=== PATIENT | female | born 1945 | race Caucasian/White ===

== ENCOUNTER → 2016-07-19 | Outpatient (CLI) | payer OTHER ==
[~2016-07-19] MED LIST: ATV5 PO; BACL10TA PO; BIOT1CAP8 PO; CHOL1000 PO; CITA20TA4 PO; CLC100 PO; CLX20 PO; DLCS PR; FLUT110A INH; FLVHFA110 INH; HYDR-5688 PO; LINA1CAP2 PO; LORA-741 PO; MELA1TAB5 PO; MELO7.5T5 PO; MRLP17 PO; NRN300 PO; NRV5 PO; OXYC-57 PO; PRED10TA PO; RXC5 PO; SENN8.6T7 PO; SODIENE6 PR
[2016-07-19 16:37] LABS: BASO % 0.4 %; BASO ABS # 0.03 K/uL (0-0.2); COMPLETE YES; EOS % 2.3 %; IG% 0.1 %; LYMPH % 31.3 %; LYMPH ABS # 2.19 K/uL (1.2-3.4); MEAN CELL VOLUME 89.8 fL (80-100); MEAN CORPUSCULAR HEMOGLOBIN 31.8 pg (25-34); MEAN CORPUSCULAR HGB CONC 35.4 g/dl (32-36); MEAN PLATELET VOLUME 10.2 fL (7.4-10.4); MONO % 11.2 %; NEUT % 54.7 %; PLATELET COUNT 220 K/uL (130-400); RED BLOOD COUNT 4.12 M/uL (4.2-5.4); WHITE BLOOD COUNT 6.99 K/uL (4.8-10.8)
[2016-07-19 17:13] LABS: BLOOD UREA NITROGEN 21 mg/dl (7-18); BUN/CREATININE RATIO 22.8 (10-20); CALCIUM 8.7 mg/dl (8.5-10.1); CARBON DIOXIDE 26 mmol/L (21-32); CHLORIDE 109 mmol/L (98-107); CHOLESTEROL 215 mg/dl (0-200); CREATININE 0.93 mg/dl (0.60-1.20); GLUCOSE 94 mg/dl (70-99); POTASSIUM 3.9 mmol/L (3.5-5.1); SODIUM 143 mmol/L (136-145); TRIGLYCERIDES 174 mg/dl (0-150); VERY LOW DENSITY LIPOPROT CALC 35 mg/dl
[2016-07-19 17:24] LABS: CHOLESTEROL/HDL RATIO 2.9; HDL CHOLESTEROL 74 mg/dl; LDL CHOLESTEROL CALCULATED 106 mg/dl; THYROID STIMULATING HORMONE 0.934 uIu/ml (0.300-4.500)
== END | disposition home or self-care (01) ==
LOC: C.LAB 15:27
PROVIDERS: ATTEND Physician Assistant
DX: J30.9 Allergic rhinitis, unspecified (principal); R51 Headache; E78.5 Hyperlipidemia, unspecified; I10 Essential (primary) hypertension; K59.09 Other constipation

== ENCOUNTER → 2016-07-29 | Day surgery (SDC) | payer OTHER ==
[2016-07-17 12:55] VITALS: Ht 162.6 cm; Wt 62.7 kg
[~2016-07-29] VITALS: Ht 162.6 cm; Wt 62.7 kg
[~2016-07-29] MED LIST changes: +LIDOCAINE HCL 2% 2 ML VIAL (20MG/ML) ONE; +MIDAZOLAM HCL 1 MG/ML 2ML VIAL ONE; +ONDANSETRON INJ 2 MG/ML 2 ML VIAL ONE; +PROPOFOL IV EMULSION 10 MG/ML 20 ML VIAL IV ONE; +SODIUM CHLORIDE 0.9% 500ML 500 ML IV ONE
--- NOTE | 2016-07-29 08:34 | Endo History and Physical ---
History & Physical Date of Service: Jul 29, 2016. Chief Complaint: Constipation Referring Physician: Dr. Almas Esparza History of Present Illness 71 yo CF who presents for colonoscopy secondary to constipation. Past Medical History Asthma, Reflux Past Surgical History Hx Cardiac Surgery: No Hx Internal Defibrillator: No Hx Pacemaker: No Hx Abdominal Surgery: Yes (ROBERTO) Hx of Implantable Prosthesis: No Hx Post-Op Nausea and Vomiting: No Hx Cancer Surgery: No Hx Thoracic Surgery: No Hx Orthopedic: Yes (CERVICAL DISCECTOMY) Hx Urinary Tract Surgery: No Family History IBD Social History Smoking Status: Never Smoker Hx Substance Use: No Hx Alcohol Use: No Allergies Coded Allergies: Erythromycin (Verified Allergy, Unknown, NAUSEA, 07/29/16) Sulfamethoxazole (Verified Allergy, Unknown, RASH, 07/17/16) Uncoded Allergies: [id number] (Allergy, Unknown, NAUSEA, 01/18/15) [id number] (Allergy, Unknown, 01/18/15) Current Medications Reported Home Medications Medications Dose Route/Sig Max Daily Dose Days Date Category Linzess (Linaclotide) 290 Mcg Cap 290 Mcg PO DAILY 07/29/16 Reported Kp Melatonin (Melatonin) 3 Mg Tab 1 Tab PO HS 30 07/17/16 Reported Mobic (Meloxicam) 7.5 Mg Tab 7.5 Mg PO HS 07/17/16 Reported Vitamin D3 (Cholecalciferol) 1,000 Unit Tab 1 Tab PO QAM 90 07/17/16 Reported Biotin 1 Mg Cap 1 Cap PO QAM 07/17/16 Reported Flovent Hfa 110MCG Inhaler (Fluticasone Propionate Hfa) 110 Mcg/ Aer 1 Puff INH QAM 02/17/14 Reported Ativan * (Lorazepam) 0.5 Mg Tab 0.5 Mg PO Q6HR PRN 07/24/08 Reported Celexa * (Citalopram Hydrobromide) 20 Mg Tab 30 Mg PO QAM 07/24/08 Reported Vital Signs Weight (Kilograms): 62.73 Height (Feet): 5 Height (Inches): 4 Date Time Temp Pulse Resp B/P Pulse Ox O2 Delivery O2 Flow Rate FiO2 07/29/16 08:21 37 78 20 138/72 98 Room Air Physical Exam General Appearance: WD/WN, no apparent distress Respiratory/Chest: Auscultation: breath sounds normal Cardiovascular: Heart Auscultation: RRR Abdomen: Bowel Sounds: normal Inspection & Palpation: soft, non-distended, no tenderness, guarding & rebound Assessment and Plan Assessment: 71 yo CF who presents for colonoscopy secondary to constipation. Plan: Proceed with colonoscopy.
--- NOTE | 2016-07-29 09:01 | GI REPORT ---
Procedure Date: 07/29/2016 8:37 AM Procedure: Colonoscopy Indications: Constipation Medicines: Monitored Anesthesia Care Complications: No immediate complications. Estimated Blood Loss: Estimated blood loss: none. Procedure: Pre-Anesthesia Assessment: - Prior to the procedure, a History and Physical was performed, and patient medications and allergies were reviewed. The patient's tolerance of previous anesthesia was also reviewed. The risks and benefits of the procedure and the sedation options and risks were discussed with the patient. All questions were answered, and informed consent was obtained. Prior Anticoagulants: The patient has taken no previous anticoagulant or antiplatelet agents. ASA Grade Assessment: II - A patient with mild systemic disease. After reviewing the risks and benefits, the patient was deemed in satisfactory condition to undergo the procedure. After I obtained informed consent, the scope was passed under direct vision. Throughout the procedure, the patient's blood pressure, pulse, and oxygen saturations were monitored continuously. The scope was introduced through the anus and advanced to the terminal ileum. The colonoscopy was performed without difficulty. The patient tolerated the procedure well. The quality of the bowel preparation was good. The terminal ileum, ileocecal valve, appendiceal orifice, and rectum were photographed. Findings: Non-bleeding internal hemorrhoids were found during retroflexion. The hemorrhoids were small. The exam was otherwise without abnormality. Impression: - Non-bleeding internal hemorrhoids. - The examination was otherwise normal. - No specimens collected. Recommendation: - Resume previous diet. - Continue present medications. - Repeat colonoscopy in 10 years for surveillance. - Return to primary care physician as previously scheduled. Mina Naik DO 07/29/2016 9:01:17 AM This report has been signed electronically. Note Initiated On: 07/29/2016 8:37 AM I attest to the content of the Intraoperative Record and orders documented therein, exceptions below
--- NOTE | 2016-07-29 09:02 | Discharge Instructions ---
Endoscopy Patient Instructions Date / Procedure(s) Performed Jul 29, 2016. Colonoscopy Allergy Information Coded Allergies: Erythromycin (Verified Allergy, Unknown, NAUSEA, 07/29/16) Sulfamethoxazole (Verified Allergy, Unknown, RASH, 07/17/16) Uncoded Allergies: [id number] (Allergy, Unknown, NAUSEA, 01/18/15) [id number] (Allergy, Unknown, 01/18/15) Discharge Date / Findings Jul 29, 2016. Internal hemorrhoids Medication Instructions Stopped Medication(s): Last dose Mobic Friday OK to resume all medications today as prescribed. Reported Home Medications Medications Dose Route/Sig Max Daily Dose Days Date Category Linzess (Linaclotide) 290 Mcg Cap 290 Mcg PO DAILY 07/29/16 Reported Kp Melatonin (Melatonin) 3 Mg Tab 1 Tab PO HS 30 07/17/16 Reported Mobic (Meloxicam) 7.5 Mg Tab 7.5 Mg PO HS 07/17/16 Reported Vitamin D3 (Cholecalciferol) 1,000 Unit Tab 1 Tab PO QAM 90 07/17/16 Reported Biotin 1 Mg Cap 1 Cap PO QAM 07/17/16 Reported Flovent Hfa 110MCG Inhaler (Fluticasone Propionate Hfa) 110 Mcg/ Aer 1 Puff INH QAM 02/17/14 Reported Ativan * (Lorazepam) 0.5 Mg Tab 0.5 Mg PO Q6HR PRN 07/24/08 Reported Celexa * (Citalopram Hydrobromide) 20 Mg Tab 30 Mg PO QAM 07/24/08 Reported Provider Instructions Activity Restrictions - No exercising or heavy lifting for 24 hours. - Do not drink alcohol the day of the procedure. - Do not drive a car or operate machinery until the day after the procedure. - Do not make any important decisions or sign important papers in 24 hours after the procedure. Following Day: - Return to full activity which may include returning to work/school. Diet Start your diet with liquids and light foods (jello, soup, juice, toast). Then eat your usual diet if not nauseated. Treatment For Common After Affects For mild abdominal pain, bloating, or excessive gas: - Rest - Eat lightly - Lie on right side Follow-Up Information Follow-up with Dr. Almas Esparza as scheduled Anesthesia Information What You Should Know You have had a procedure that required some medicine to reduce anxiety and discomfort. This treatment is called moderate sedation. After receiving the treatment, you may be sleepy, but you will be able to breathe on your own. The effects of the treatment may last for several hours. Follow these instructions along with Activity/Diet recommendations noted above: * Do NOT do anything where dizziness or clumsiness would be dangerous. * Rest quietly at home today, then you can be up and about tomorrow. * Have a responsible person stay with you the rest of today. * You may have had an I.V. today. If so, you may take the dressing off later today. Recommendations Call your doctor if: * Trouble breathing * Continuous vomiting for more than 24 hours * Temperature above 101 degrees * Severe abdominal pain or bloating * Pain not relieved by pain medicine ordered * There is increased drainage or redness from any incision * A large amount of rectal bleeding greater than 2-3 tablespoons. (If you had a polyp/s removed or have hemorrhoids, a small amount of blood - from the rectum is to be expected.) * You have any unanswered questions or concerns. IN THE EVENT OF A SERIOUS EMERGENCY, GO TO THE NEAREST EMERGENCY ROOM Your discharge instructions were prepared by provider Mina Naik. Patient Instructions Signature Page Ella Yoder Patient (or Guardian) Signature/Date: I have read and understand the instructions given to me by my caregivers. Caregiver/RN/Doctor Signature/Date: The above-named patient and/or guardian has received patient instructions on this date. + Original Patient Signature Page (only) stays with chart. Please make copy for patient.
--- NOTE | 2016-07-29 09:29 | Anesthesiology Progress Note ---
Anesthesia Post Op Note Date & Time Jul 29, 2016 at 09:29 Vital Signs Pain Intensity: 0 Vital Signs Past 12 Hours Date Time Temp Pulse Resp B/P Pulse Ox O2 Delivery O2 Flow Rate FiO2 07/29/16 09:15 60 18 119/62 95 Room Air 07/29/16 09:00 55 16 90/54 95 Room Air 07/29/16 08:21 37 78 20 138/72 98 Room Air Notes Mental Status: alert / awake / arousable, participated in evaluation Pt Amnestic to Procedure: Yes Nausea / Vomiting: adequately controlled Pain: adequately controlled Airway Patency, RR, SpO2: stable & adequate BP & HR: stable & adequate Hydration State: stable & adequate Anesthetic Complications: no major complications apparent
[2016-07-29 09:30] VITALS: BP 128/72; PULSE 56; O2SAT 98
== END | disposition home or self-care (01) ==
LOC: C.GI 08:02
PROVIDERS: ATTEND Internal Medicine
DX: K59.00 Constipation, unspecified (principal); K64.8 Other hemorrhoids; Z83.79 Family history of other diseases of the digestive system

== ENCOUNTER 2017-01-01 15:04 | Emergency (ER) | payer OTHER ==
[~2017-01-01 15:04] MED LIST changes: -BACL10TA PO; -CITA20TA4 PO; -CLC100 PO; -DLCS PR; -FLVHFA110 INH; -HYDR-5688 PO; -LIDOCAINE HCL 2% 2 ML VIAL (20MG/ML) ONE; -LORA-741 PO; -MIDAZOLAM HCL 1 MG/ML 2ML VIAL ONE; -MRLP17 PO; -NRN300 PO; -NRV5 PO; -ONDANSETRON INJ 2 MG/ML 2 ML VIAL ONE; -OXYC-57 PO; -PRED10TA PO; -PROPOFOL IV EMULSION 10 MG/ML 20 ML VIAL IV ONE; -RXC5 PO; -SENN8.6T7 PO; -SODIENE6 PR; -SODIUM CHLORIDE 0.9% 500ML 500 ML IV ONE
[2017-01-01 15:18] VITALS: Ht 162.6 cm
[2017-01-01] MEDS ORDERED: SODIUM CHLORIDE 0.9% 1000ML 1,000 ML IV STA (15:36)
[2017-01-01] MEDS ORDERED: METHYLPREDNISOLONE 125 MG VIAL IV STA (15:36)
[2017-01-01] MEDS ORDERED: LORAZEPAM 2 MG/ML 1 ML VIAL IV STA (15:36)
[2017-01-01] MEDS ORDERED: MoRPHine SULFATE 2 MG/ML CARP IV STA (15:36)
[2017-01-01 16:08] LABS: HEMATOCRIT 35.7 % (37-47); MEAN CELL VOLUME 89.3 fL (80-100); MEAN CORPUSCULAR HGB CONC 34.7 g/dl (32-36); MEAN PLATELET VOLUME 9.2 fL (7.4-10.4); PLATELET COUNT 188 K/uL (130-400)
--- NOTE | 2017-01-01 16:11 | EMERGENCY ROOM VISIT NOTE ---
History Report prepared by Behzad: Su Pablo Under the Supervision of: Dr. Jessa Cedeno M.D. First contact with patient: 15:31 Chief Complaint: HIP PAIN Stated Complaint: SEVERE PAIN/NUMBNESS IN RT HIP, KNEE AND LEG History of Present Illness The patient is a 71 year old female who presents to the Emergency Room with complaints of right hip pain starting 6 and a half hours ago. The patient had woken up about 2 hours prior to the onset of her symptoms but she did not have any hip pain then. When the patient woke up again about 6 and a half hours ago, she started having severe right hip pain. She describes it as a shooting pain and numbness radiating down her right leg. She is unable to ambulate as normal due to the severity of the pain. She has worsening pain with certain positions and movement. She took Vicodin without relief. The patient has a history of cervical disc surgery. She denies any history of diabetes or osteoporosis. She has been doing increased bending and lifting for the past 3 weeks. She denies bowel incontinence, or any other complaints. Source of History: patient Onset: 6 and a half hours ago Position: other (right hip) Symptom Intensity: severe Quality: numbness, other (shooting pain) Modifying Factors (Worsening): other (certain positions and movement) Modifying Factors (Relieving): other (Vicodin without relief) Review of Systems See HPI for pertinent positives & negatives. A total of 10 systems reviewed and were otherwise negative. Past Medical & Surgical Medical Problems: (1) Anxiety (2) Depression (3) Fibromyalgia (4) GERD (gastroesophageal reflux disease) (5) Osteoarthritis Surgical Problems: (1) H/O laminectomy (2) S/P cholecystectomy Family History No pertinent family history Social History Smoking Status: Never Smoker Alcohol Use: none Drug Use: none Marital Status: Housing Status: lives with significant other Current/Historical Medications Scheduled Biotin (Biotin), 1 CAP PO QAM Cholecalciferol (Vitamin D3), 1 TAB PO QAM Citalopram Hydrobromide (Citalopram Hydrobromide), 1.5 TAB PO DAILY Fluticasone Propionate (Flovent Hfa), 1 PUFFS INH QAM Lorazepam (Ativan), 0.5 MG PO HS Melatonin (Kp Melatonin), 1 TAB PO HS Meloxicam (Mobic), 2 TAB PO HS Prednisone (Prednisone), 10 MG PO DIRECTED Scheduled PRN Hydrocodone/Acetaminophen 5MG/325MG ([place] 5MG/325MG), 1-2 TAB PO for Pain Lorazepam (Ativan), 0.5 MG PO TID PRN for Muscle Spasms Oxycodone/Acetaminophen 5MG/325MG (Percocet 5MG/325MG), 1 TAB PO Q4H PRN for Pain Allergies Coded Allergies: Erythromycin (Verified Allergy, Unknown, NAUSEA, 01/01/17) Sulfamethoxazole (Verified Allergy, Unknown, RASH, 01/01/17) Physical Exam Vital Signs Date Time Temp Pulse Resp B/P (MAP) Pulse Ox O2 Delivery O2 Flow Rate FiO2 01/01/17 19:18 36.7 56 20 112/70 97 01/01/17 16:55 56 01/01/17 15:18 36.7 64 20 112/70 97 Room Air Physical Exam Vital signs reviewed. General: Well-appearing female, in no significant distress. HEENT: No scleral icterus, PERRLA, neck supple. Atraumatic. Cardiovascular: Regular rate and rhythm, no extra sounds. Pulmonary: Clear to auscultation bilaterally, normal work of breathing. Abdomen: Soft, nontender, nondistended, positive bowel sounds. Musculoskeletal: Atraumatic, no peripheral edema. Positive right straight leg raise. Neurologic: Patient awake alert and oriented x 3, full strength in all 4 extremities. Cranial nerves 2 through 12 grossly intact. Skin: Warm, dry, no rash Medical Decision & Procedures ER Provider Diagnostic Interpretation: X-ray results as stated below per interpretation by me and the radiologist: L-SPINE MIN 4 VIEWS ROUTINE CLINICAL HISTORY: Right lumbar radiculopathy. COMPARISON: None FINDINGS: There are cholecystectomy clips. Alignment of the lumbar spine is anatomic. Vertebral body heights are maintained. There is no fracture or suspicious lesion. Disc spaces are preserved. There is mild multilevel endplate osteophytosis. There is moderate facet arthrosis. IMPRESSION: 1. No acute lumbar spine fracture. 2. Mild multilevel degenerative disc disease and moderate multilevel facet arthrosis. Electronically signed by: Rosalino Kelly M.D. 01/01/2017 4:43 PM Dictated Date/Time: 01/01/2017 4:42 PM Laboratory Results 01/01/17 15:55 01/01/17 15:55 Test 01/01/17 15:55 01/01/17 16:00 Red Blood Count 4.00 M/uL (4.2-5.4) Mean Corpuscular Volume 89.3 fL (80-100) Mean Corpuscular Hemoglobin 31.0 pg (25-34) Mean Corpuscular Hemoglobin Concent 34.7 g/dl (32-36) RDW Standard Deviation 40.1 fL (36.4-46.3) RDW Coefficient of Variation 12.3 % (11.5-14.5) Mean Platelet Volume 9.2 fL (7.4-10.4) Anion Gap 4.0 mmol/L (3-11) Estimated GFR () 81.0 Estimated GFR (Non- 69.9 BUN/Creatinine Ratio 22.4 (10-20) Calcium Level 8.9 mg/dl (8.5-10.1) Total Bilirubin 0.4 mg/dl (0.2-1) Direct Bilirubin 0.1 mg/dl (0-0.2) Aspartate Amino Transf (AST/SGOT) 19 U/L (15-37) Alanine Aminotransferase (ALT/SGPT) 30 U/L (12-78) Alkaline Phosphatase 75 U/L (45-117) Total Protein 6.6 gm/dl (6.4-8.2) Albumin 3.3 gm/dl (3.4-5.0) Urine Color YELLOW Urine Appearance CLEAR (CLEAR) Urine pH 5.0 (4.5-7.5) Urine Specific [place] 1.014 (1.000-1.030) Urine Protein NEG (NEG) Urine Glucose (UA) NEG (NEG) Urine Ketones NEG (NEG) Urine Occult Blood NEG (NEG) Urine Nitrite NEG (NEG) Urine Bilirubin NEG (NEG) Urine Urobilinogen NEG (NEG) Urine Leukocyte Esterase TRACE (NEG) Urine WBC (Auto) 1-5 /hpf (0-5) Urine RBC (Auto) 0-4 /hpf (0-4) Urine Hyaline Casts (Auto) 0 /lpf (0-5) Urine Epithelial Cells (Auto) 0-5 /lpf (0-5) Urine Bacteria (Auto) NEG (NEG) Laboratory results per my review. Medications Administered Medications (Trade) Dose Ordered Sig/Brianna Route Start Time Stop Time Status Last Admin Dose Admin Methylprednisolone Sodium Succinate (Solu-Medrol IV) 125 mg NOW STAT IV 01/01/17 15:36 01/01/17 15:39 DC 01/01/17 16:07 125 MG Lorazepam (Ativan Inj) 0.5 mg NOW STAT IV 01/01/17 15:36 01/01/17 15:39 DC 01/01/17 16:06 0.5 MG Morphine Sulfate (MoRPHine SULFATE INJ) 2 mg NOW STAT IV 01/01/17 15:36 01/01/17 15:39 DC 01/01/17 16:07 2 MG Sodium Chloride 1,000 ml @ 200 mls/hr Q5H STAT IV 01/01/17 15:36 01/01/17 19:56 DC 01/01/17 16:07 200 MLS/HR Promethazine HCl 12.5 mg/Sodium Chloride 50.5 ml @ 204 mls/hr NOW STAT IV 01/01/17 16:56 01/01/17 17:10 DC 01/01/17 17:08 204 MLS/HR Oxycodone/ Acetaminophen (Percocet 5-325mg Tab) 1 tab NOW ONCE PO 01/01/17 19:00 01/01/17 19:01 DC 01/01/17 18:57 1 TAB ECG Indication: chest pain Rate (beats per minute): 55 Rhythm: sinus bradycardia Findings: no acute ischemic change, no ectopy ED Course 1531: Past medical records reviewed. The patient was evaluated in room C10. A complete history and physical examination was performed. 1536: Sodium Chloride 1000 ml @ 200 mls/hr IV, Morphine Sulfate 2 mg IV, Ativan Inj 0.5 mg IV, Solu-Medrol IV 125 mg IV 1656: Promethazine HCl 12.5 mg/Sodium Chloride 50.5 ml @ 204 mls/hr IV. The patient had an episode of chest pain. 1740: I reevaluated the patient. Her back pain has improved. 1818: Upon reevaluation, the patient appeared to have improvement of her symptoms. She successfully performed an ambulatory trial. I discussed findings with her. She verbalized agreement of the treatment plan. She was discharged home. 1900: Ordered Oxycodone/Acetaminophen 1 tab PO. Medical Decision Differential diagnosis: Etiologies such as musculoskeletal, disc herniation, fracture, aortic disease, metastatic disease, cord compression, discitis, infection, renal colic, gastrointestinal, acute exacerbation of chronic back pain, sciatica, cauda equina, as well as others were entertained. This patient was evaluated and appeared to be in no significant distress. IV access was obtained and laboratory work was drawn. The patient was placed on the criminal justice lawyer and found to be in a sinus bradycardia. Patient was hydrated with normal saline solution, given IV Solu-Medrol, IV morphine and Ativan. Shortly thereafter the patient was nauseated and given 12.5 mg of Phenergan. The patient had significant improvement in her symptoms. She was able to perform an ambulation trial with minimal assistance. Patient was discharged to the care of her . Patient was discharged with a prescription for Percocet and a prednisone taper. She'll follow-up with her physician for reevaluation this week. Patient will return to the ER for worsening of symptoms or any medical concerns. [place] Drug Monitoring Program Search Results: patient reviewed within database, no issues identified Medication Reconcilliation Current Medication List: was personally reviewed by me Blood Pressure Screening Patient's blood pressure: Normal blood pressure Impression Primary Impression: Lumbar radiculopathy, right Scribe Attestation The scribe's documentation has been prepared under my direction and personally reviewed by me in its entirety. I confirm that the note above accurately reflects all work, treatment, procedures, and medical decision making performed by me. Departure Information Dispostion Home / Self-Care Prescriptions Prednisone (Prednisone) 10 Mg Tab 10 MG PO DIRECTED, #31 TAB 40 mg for 4 days, 30 mg for 3 days, 20 mg for 2 days, 10 mg for 2 days. Prov: Jessa Cedeno M.D. 01/01/17 Lorazepam (ATIVAN) 0.5 Mg Tab 0.5 MG PO TID Y for Muscle Spasms, #20 TAB Prov: Jessa Cedeno M.D. 01/01/17 Oxycodone/Acetaminophen 5MG/325MG (PERCOCET 5MG/325MG) Tab 1 TAB PO Q4H Y for Pain, #20 TAB Prov: Jessa Cedeno M.D. 01/01/17 Referrals Almas Esparza M.D. (PCP) Forms HOME CARE DOCUMENTATION FORM, IMPORTANT VISIT INFORMATION, WORK / SCHOOL INSTRUCTIONS Patient Instructions [facility] Additional Instructions Diagnosis: Lumbar radiculopathy Prednisone 40 mg for 4 days, 30 mg for 3 days, 20 mg for 2 days, 10 mg for 2 days. Please start tomorrow. Ativan 0.5 mg 2-3 times daily as needed for muscular spasm. Percocet 1 tablet every 4 hours as needed for severe pain. Do not take Tylenol or drive with this medication. Warm compresses and gentle stretching for relief of her discomfort. Follow-up with your physician within the next 3-5 days for reevaluation. Return to the emergency department for worsening of symptoms or any medical concerns.
[2017-01-01 16:21] LABS: ALT/SGPT 30 U/L (12-78); BLOOD UREA NITROGEN 19 mg/dl (7-18); BUN/CREATININE RATIO 22.4 (10-20); CALCIUM 8.9 mg/dl (8.5-10.1); CARBON DIOXIDE 27 mmol/L (21-32); CHLORIDE 109 mmol/L (98-107); CREATININE 0.85 mg/dl (0.60-1.20); GLUCOSE 86 mg/dl (70-99); POTASSIUM 4.5 mmol/L (3.5-5.1); SODIUM 140 mmol/L (136-145)
[2017-01-01 16:24] LABS: ALKALINE PHOSPHATASE 75 U/L (45-117); AST/SGOT 19 U/L (15-37)
[2017-01-01] MEDS ORDERED: LORA-741 PO ×2 (16:26→18:23)
[2017-01-01] MEDS ORDERED: CITA20TA4 PO (16:26)
[2017-01-01] MEDS ORDERED: FLVHFA110 INH (16:26)
[2017-01-01] MEDS ORDERED: HYDR-5688 PO (16:27)
[2017-01-01 16:35] LABS: MANUAL MICROSCOPIC REQUIRED? NO; REVIEW REQ? NO; URINE APPEARANCE CLEAR (CLEAR); URINE BILIRUBIN NEG (NEG); URINE COLOR YELLOW; URINE EPITHELIAL CELL AUTO 0-5 /lpf (0-5); URINE NITRITE NEG (NEG); URINE SPECIFIC GRAVITY 1.014 (1.000-1.030); UROBILINOGEN NEG (NEG); ZZUR CULT IF INDIC CLEAN CATCH NO
--- NOTE | 2017-01-01 16:45 | DIAGNOSTIC IMAGING REPORT ---
L-SPINE MIN 4 VIEWS ROUTINE CLINICAL HISTORY: Right lumbar radiculopathy. COMPARISON: None FINDINGS: There are cholecystectomy clips. Alignment of the lumbar spine is anatomic. Vertebral body heights are maintained. There is no fracture or suspicious lesion. Disc spaces are preserved. There is mild multilevel endplate osteophytosis. There is moderate facet arthrosis. IMPRESSION: 1. No acute lumbar spine fracture. 2. Mild multilevel degenerative disc disease and moderate multilevel facet arthrosis. Electronically signed by: Rosalino Kelly M.D. 01/01/2017 4:43 PM Dictated Date/Time: 01/01/2017 4:42 PM
[2017-01-01] MEDS ORDERED: PROMETHAZINE HCL INJ 12.5 MG in SODIUM CHLORIDE 0.9% 50ML 50 ML IV STA (16:56)
[2017-01-01] MEDS ORDERED: OXYC-57 PO (18:23)
[2017-01-01] MEDS ORDERED: PRED10TA PO (18:23)
[2017-01-01] MEDS ORDERED: OXYCODONE/ACETAMINOPHEN 5-325 TAB PO ONE (19:00)
[2017-01-01 19:18] VITALS: BP 112/70; PULSE 56; TEMP 36.7; O2SAT 97
[2017-01-10] MEDS ORDERED: CLC100 PO (15:52)
[2017-01-10] MEDS ORDERED: NRN300 PO (15:52)
[2017-01-10] MEDS ORDERED: MRLP17 PO (15:52)
[2017-01-10] MEDS ORDERED: NRV5 PO (15:52)
[2017-01-10] MEDS ORDERED: DLCS PR (15:52)
[2017-01-10] MEDS ORDERED: SENN8.6T7 PO (15:52)
[2017-01-10] MEDS ORDERED: SODIENE6 PR (15:52)
[2017-01-10] MEDS ORDERED: ATV5 PO (15:52)
== END 2017-01-01 19:19 | disposition home or self-care (01) ==
LOC: C.EDB 15:09 → C.EDC 19:19
DX: M54.16 Radiculopathy, lumbar region (principal); R00.1 Bradycardia, unspecified; K21.9 Gastro-esophageal reflux disease without esophagitis; F41.9 Anxiety disorder, unspecified; F32.9 Major depressive disorder, single episode, unspecified; M19.90 Unspecified osteoarthritis, unspecified site; Z90.49 Acquired absence of other specified parts of digestive tract; Z79.899 Other long term (current) drug therapy; Z88.2 Allergy status to sulfonamides; Z88.3 Allergy status to other anti-infective agents

== ENCOUNTER 2017-01-04 16:13 | Inpatient (IN) | payer OTHER ==
[~2017-01-04] VITALS: Ht 165.1 cm; Wt 66.4 kg
[~2017-01-04 16:13] MED LIST changes: -ATV5 PO; +CITA20TA4 PO; -CLX20 PO; -FLUT110A INH; +FLVHFA110 INH; +HYDR-5688 PO; -LINA1CAP2 PO; +LORA-741 PO; +OXYC-57 PO; +PRED10TA PO
[2017-01-04] MEDS ORDERED: ONDANSETRON INJ 2 MG/ML 2 ML VIAL IV STA (17:16)
[2017-01-04] MEDS ORDERED: BACL10TA PO (17:17)
[2017-01-04] MEDS: HYDROmorphone INJ 2 MG/ML SYR/VIAL IV PRN ×2 (17:50→19:20)
[2017-01-04 17:51] LABS: BASO % 0.1 %; BASO ABS # 0.01 K/uL (0-0.2); COMPLETE YES; HEMATOCRIT 40.4 % (37-47); IG% 0.4 %; LYMPH % 9.5 %; MEAN CELL VOLUME 90.8 fL (80-100); MEAN CORPUSCULAR HEMOGLOBIN 30.8 pg (25-34); MEAN CORPUSCULAR HGB CONC 33.9 g/dl (32-36); MEAN PLATELET VOLUME 9.3 fL (7.4-10.4); MONO % 6.8 %; NEUT % 83.2 %; PLATELET COUNT 232 K/uL (130-400); RED BLOOD COUNT 4.45 M/uL (4.2-5.4); WHITE BLOOD COUNT 9.48 K/uL (4.8-10.8)
[2017-01-04 17:59] LABS: MANUAL MICROSCOPIC REQUIRED? NO; REVIEW REQ? NO; URINE APPEARANCE CLEAR (CLEAR); URINE BILIRUBIN NEG (NEG); URINE COLOR YELLOW; URINE EPITHELIAL CELL AUTO 0-5 /lpf (0-5); URINE NITRITE NEG (NEG); URINE SPECIFIC GRAVITY 1.012 (1.000-1.030); UROBILINOGEN NEG (NEG)
[2017-01-04 18:21] LABS: BLOOD UREA NITROGEN 19 mg/dl (7-18); BUN/CREATININE RATIO 22.9 (10-20); CALCIUM 9.2 mg/dl (8.5-10.1); CARBON DIOXIDE 31 mmol/L (21-32); CHLORIDE 106 mmol/L (98-107); CREATININE 0.83 mg/dl (0.60-1.20); GLUCOSE 119 mg/dl (70-99); POTASSIUM 4.2 mmol/L (3.5-5.1); SODIUM 139 mmol/L (136-145)
--- NOTE | 2017-01-04 20:25 | DIAGNOSTIC IMAGING REPORT ---
MRI OF THE LUMBAR SPINE WITHOUT CONTRAST CLINICAL HISTORY: Back pain-intractable right hip/leg pain, ?disc COMPARISON STUDY: Lumbar spine radiographs January 01, 2017. TECHNIQUE: Utilizing a 1.5 Jenny magnet and dedicated coil, multiplanar, multiecho imaging of the lumbar spine was performed without IV contrast. FINDINGS: For purposes of numbering on this exam, the L5-S1 disc space is assigned to axial image 23 of 25. Alignment of lumbar spine is anatomic. Vertebral body heights are maintained and there is no suspicious marrow replacement. There is no intracanalicular mass or fluid collection. The conus terminates at the upper L1 level. Incidental note is made of mild dilatation of the common bile duct, measuring 9 mm, status post cholecystectomy. L1-2: The central canal and neural foramen are patent. L2-3: There is disc bulge with ligamentous hypertrophy and facet arthrosis. The findings result in moderate narrowing of the central canal and lateral recesses with mild narrowing of both neural foramen. L3-4: There is disc bulge with ligamentous hypertrophy and facet arthrosis that result in severe narrowing of the central canal and lateral recesses as well as the right neural foramen. Note is made of a suspected superimposed right foraminal disc protrusion. There is mild narrowing of the left neural foramen. L4-5: There is disc bulge with facet arthrosis and marked ligamentous hypertrophy that result in severe narrowing of the central canal and lateral recesses with mild narrowing of both neural foramen. L5-S1: The central canal is patent. There is facet arthrosis. There is mild narrowing of both neural foramen. IMPRESSION: 1. Severe narrowing of the central canal, lateral recesses and right neural foramen at L3-L4 due to disc bulge, ligamentous hypertrophy and facet arthrosis with a suspected superimposed right foraminal disc protrusion. 2. Severe narrowing of the central canal and lateral recesses at L4-L5 predominantly due to facet arthrosis with marked ligamentous hypertrophy. Mild disc bulge. 3. Moderate central canal stenosis at L2-L3 due to disc bulge, ligamentous hypertrophy and facet arthrosis. 4. Mild biliary ductal dilatation. This is likely related to prior cholecystectomy although could be correlated with obstructive liver function tests. Electronically signed by: Rosalino Kelly M.D. 01/04/2017 8:23 PM Dictated Date/Time: 01/04/2017 8:16 PM
[2017-01-04] MEDS ORDERED: DEXAMETHASONE SOD INJ 10 MG/ML VIAL IV ONE (20:30)
[2017-01-04] MEDS ORDERED: HYDROmorphone INJ 1 MG/ML SYR ONE (20:32)
[2017-01-04] MEDS ORDERED: ONDANSETRON INJ 2 MG/ML 2 ML VIAL IV PRN (22:00)
[2017-01-04] MEDS ORDERED: HYDROmorphone INJ 1 MG/ML SYR IV PRN (22:00)
[2017-01-04] MEDS ORDERED: HYDROCODONE/ACETAMOPHEN 5/325MG TAB PO PRN (22:00)
[2017-01-04] MEDS ORDERED: LORAZEPAM 0.5 MG TAB PO PRN (22:00)
[2017-01-04] MEDS ORDERED: ACETAMINOPHEN 325 MG TAB PO PRN (22:00)
--- NOTE | 2017-01-04 23:08 | History and Physical ---
History & Physical Date & Time of Service: Jan 04, 2017 at 21:32 Chief Complaint: Severe Hip/Knee Pain With Numbness Primary Care Physician: Almas Esparza M.D. History of Present Illness Source: patient 71F with a PMHx of Anxiety, depression, fibromyalgia, GERD, OA p/w a 4 days history of back pain that is worse when she stands up. According to pt, corroborated by who is present at bedside, pt woke up 4 days ago with this pain. She denies any trauma to her back or any inciting event such as bending or lifting. She denies hearing a pop or crack that precipitated this. Pt has a history of cervical radiculopathy >20years prior that was corrected surgically - this pain reminds her of that event. Pt was seen in the ED 4 days ago with pain and given medications - her pain persists. The pain radiates down in right leg in the back and front, the pain is localized mostly around the hip and knee, she describes the pain as a sharp stabbing pain. The pain is made worse when she stands or lies supine and is relieved when she sits up. She denies any urinary incontinence. She received Dilautid in the ED which relieved most of her pain symptoms. ROS: No chest pain, no SOB, no dyspnea on exertion, no palpitations, no fevers, no chills, no nausea, no vomiting, +constipation, no dysuria, no rash. PMHx: As above + Constipation (she is seeing GI for it) PSHx: Cervical surgery for radiculopathy SHx: , has a daughter completing her EM residency in [place]. Past Medical/Surgical History Medical Problems: (1) Anxiety Status: Chronic (2) Depression Status: Chronic (3) Fibromyalgia Status: Chronic (4) GERD (gastroesophageal reflux disease) Status: Resolved (5) Osteoarthritis Status: Chronic Surgical Problems: (1) H/O laminectomy Status: Resolved (2) S/P cholecystectomy Status: Resolved Family History No pertinent family history Social History Smoking Status: Never Smoker Smokeless Tobacco Use: No Alcohol Use: none Drug Use: none Marital Status: Housing status: lives with significant other Occupational Status: retired Immunizations History of Influenza Vaccine: Yes History of Tetanus Vaccine?: Yes History of Pneumococcal: Unknown History of Hepatitis B Vaccine: Unknown Multi-Drug Resistant Organisms History of MDRO: No Allergies Coded Allergies: Sulfamethoxazole (Verified Allergy, Unknown, RASH, 01/01/17) Erythromycin (Unverified Adverse Reaction, Unknown, NAUSEA, 01/04/17) Home Medications Scheduled Baclofen (Lioresal), 10 MG PO DAILY Biotin (Biotin), 1 CAP PO QAM Cholecalciferol (Vitamin D3), 1 TAB PO QAM Citalopram Hydrobromide (Citalopram Hydrobromide), 1.5 TAB PO DAILY Fluticasone Propionate (Flovent Hfa), 1 PUFFS INH QAM Melatonin (Kp Melatonin), 1 TAB PO HS Meloxicam (Mobic), 2 TAB PO HS Prednisone (Prednisone), 10 MG PO DIRECTED Scheduled PRN Lorazepam (Ativan), 0.5 MG PO TID PRN for Muscle Spasms Oxycodone/Acetaminophen 5MG/325MG (Percocet 5MG/325MG), 1 TAB PO Q4H PRN for Pain Review of Systems Constitutional: No fever, No chills, No weight loss ENT: No sore throat Respiratory: No cough, No sputum Cardiovascular: No chest pain Genitourinary - Female: No dysuria, No urinary frequency, No urinary urgency, No urinary incontinence, No urinary retention Physical Exam Vital Signs Date Time Temp Pulse Resp B/P (MAP) Pulse Ox O2 Delivery O2 Flow Rate FiO2 01/04/17 19:14 57 18 164/85 97 Room Air 01/04/17 16:29 36.8 63 18 180/74 96 Room Air General Appearance: WD/WN, no apparent distress Respiratory/Chest: chest non-tender, lungs clear, normal breath sounds, no respiratory distress, no accessory muscle use Cardiovascular: regular rate, rhythm, no edema, no gallop, no JVD, no murmur, normal peripheral pulses Abdomen/GI: normal bowel sounds, non tender, soft, no organomegaly, no pulsatile mass, normal rectal exam, occult blood negative Extremities/Musculoskelatal: normal inspection, no calf tenderness, normal capillary refill, no pedal edema, + pertinent finding (left hip flexion severely limited due to pain, pt had good pedal strength, intact sensation to light touch over lower extremities bilaterally and symmetrical, 2+ patellar reflexes bilaterally, no muscle wasting. ) Neurologic/Psych: alert, normal mood/affect, normal reflexes, oriented x 3 Skin: no rash Diagnostics Laboratory Results Results Past 24 Hours Test 01/04/17 17:39 01/04/17 17:45 Range/Units White Blood Count 9.48 4.8-10.8 K/uL Red Blood Count 4.45 4.2-5.4 M/uL Hemoglobin 13.7 12.0-16.0 g/dL Hematocrit 40.4 37-47 % Mean Corpuscular Volume 90.8 80-100 fL Mean Corpuscular Hemoglobin 30.8 25-34 pg Mean Corpuscular Hemoglobin Concent 33.9 32-36 g/dl Platelet Count 232 130-400 K/uL Mean Platelet Volume 9.3 7.4-10.4 fL Neutrophils (%) (Auto) 83.2 % Lymphocytes (%) (Auto) 9.5 % Monocytes (%) (Auto) 6.8 % Eosinophils (%) (Auto) 0.0 % Basophils (%) (Auto) 0.1 % Neutrophils # (Auto) 7.89 1.4-6.5 K/uL Lymphocytes # (Auto) 0.90 1.2-3.4 K/uL Monocytes # (Auto) 0.64 0.11-0.59 K/uL Eosinophils # (Auto) 0.00 0-0.5 K/uL Basophils # (Auto) 0.01 0-0.2 K/uL RDW Standard Deviation 41.8 36.4-46.3 fL RDW Coefficient of Variation 12.6 11.5-14.5 % Immature Granulocyte % (Auto) 0.4 % Immature Granulocyte # (Auto) 0.04 0.00-0.02 K/uL Sodium Level 139 136-145 mmol/L Potassium Level 4.2 3.5-5.1 mmol/L Chloride Level 106 98-107 mmol/L Carbon Dioxide Level 31 21-32 mmol/L Anion Gap 2.0 3-11 mmol/L Blood Urea Nitrogen 19 7-18 mg/dl Creatinine 0.83 0.60-1.20 mg/dl Estimated GFR () 83.4 Estimated GFR (Non- 71.9 BUN/Creatinine Ratio 22.9 10-20 Random Glucose 119 70-99 mg/dl Calcium Level 9.2 8.5-10.1 mg/dl Urine Color YELLOW Urine Appearance CLEAR CLEAR Urine pH 7.0 4.5-7.5 Urine Specific Reed 1.012 1.000-1.030 Urine Protein NEG NEG Urine Glucose (UA) NEG NEG Urine Ketones NEG NEG Urine Occult Blood NEG NEG Urine Nitrite NEG NEG Urine Bilirubin NEG NEG Urine Urobilinogen NEG NEG Urine Leukocyte Esterase TRACE NEG Urine WBC (Auto) 1-5 0-5 /hpf Urine RBC (Auto) 0-4 0-4 /hpf Urine Hyaline Casts (Auto) 0 0-5 /lpf Urine Epithelial Cells (Auto) 0-5 0-5 /lpf Urine Bacteria (Auto) NEG NEG Diagnostic Radiology MRI OF THE LUMBAR SPINE WITHOUT CONTRAST CLINICAL HISTORY: Back pain-intractable right hip/leg pain, ?disc COMPARISON STUDY: Lumbar spine radiographs January 01, 2017. TECHNIQUE: Utilizing a 1.5 Jenny magnet and dedicated coil, multiplanar, multiecho imaging of the lumbar spine was performed without IV contrast. FINDINGS: For purposes of numbering on this exam, the L5-S1 disc space is assigned to axial image 23 of 25. Alignment of lumbar spine is anatomic. Vertebral body heights are maintained and there is no suspicious marrow replacement. There is no intracanalicular mass or fluid collection. The conus terminates at the upper L1 level. Incidental note is made of mild dilatation of the common bile duct, measuring 9 mm, status post cholecystectomy. L1-2: The central canal and neural foramen are patent. L2-3: There is disc bulge with ligamentous hypertrophy and facet arthrosis. The findings result in moderate narrowing of the central canal and lateral recesses with mild narrowing of both neural foramen. L3-4: There is disc bulge with ligamentous hypertrophy and facet arthrosis that result in severe narrowing of the central canal and lateral recesses as well as the right neural foramen. Note is made of a suspected superimposed right foraminal disc protrusion. There is mild narrowing of the left neural foramen. L4-5: There is disc bulge with facet arthrosis and marked ligamentous hypertrophy that result in severe narrowing of the central canal and lateral recesses with mild narrowing of both neural foramen. L5-S1: The central canal is patent. There is facet arthrosis. There is mild narrowing of both neural foramen. IMPRESSION: 1. Severe narrowing of the central canal, lateral recesses and right neural foramen at L3-L4 due to disc bulge, ligamentous hypertrophy and facet arthrosis with a suspected superimposed right foraminal disc protrusion. 2. Severe narrowing of the central canal and lateral recesses at L4-L5 predominantly due to facet arthrosis with marked ligamentous hypertrophy. Mild disc bulge. 3. Moderate central canal stenosis at L2-L3 due to disc bulge, ligamentous hypertrophy and facet arthrosis. 4. Mild biliary ductal dilatation. This is likely related to prior cholecystectomy although could be correlated with obstructive liver function tests. Impression Assessment and Plan 71F with a PMHx of Anxiety, depression, fibromyalgia, GERD, OA p/w a 4 day history of left radicular pain. MRI showed: * 1. Severe narrowing of the central canal, lateral recesses and right neural foramen at L3-L4 due to disc bulge, ligamentous hypertrophy and facet arthrosis with a suspected superimposed right foraminal disc protrusion. * 2. Severe narrowing of the central canal and lateral recesses at L4-L5 predominantly due to facet arthrosis with marked ligamentous hypertrophy. Mild disc bulge. Neuro: AAOx3, Pain Control: * Pain 1-3: PO Tylenol 650mg or IV 1mg Dilaudid Q4H PRN * Pain 4-6: PO 1 tab Hohenwald or IV 2mg Dilaudid Q4H PRN * Pain 7-10 PO 2 Percocet or IV 2mg Dilaudid Q4H PRN Mood: * Continue Celexa 30mg daily (hold while NPO after midnight) MSK - L3, L4, L5 disk bulge w radicular signs: * Physical exam findings consistent with MRI results. * Pain control as above. * Ortho - Dr. Hernandez consulted. * Continue PO Baclofen 10mg Daily. (hold while NPO) CV - No acute complaints. Resp - continue home med Flovent 1puff QAM. Renal - Creatinine is WNL. GI/ - NPO after midnight. Endo * Blood Sugars <120, Electrolytes WNL. * BMP tomorrow AM. Heme * Hgb 13.7, Platelets 232. * CBC tomorrow AM. DVT Proph: SCDs, no pharmocaologic AC because of possible surgery tomorrow. ID - Afebrile, WBC count normal. Continue to monitor. Social - No concerns. Full Code Attending Addendum: I have physically seen and examined this patient, have supervised the medical residents activities, and agree with the H&P as noted above with the following exceptions: NONE The patient is awake, well-developed and adequately nourished, alert and oriented 3, normocephalic and atraumatic, lying in bed and in no acute distress. HEENT--PERRL, EOMI, mucous membranes and oropharynx dry. Neck--supple, no JVD or bruits, thyroid normal, trachea midline, no adenopathy. Heart--normal S1 and S2, no extra beats, no murmurs, rubs or gallops. Lungs--clear bilaterally with good air movement, no respiratory distress, no accessory muscle use. Abdomen--normal bowel sounds and soft, nontender and nondistended, no hernias or masses, no organomegaly. Extremities--no cyanosis, clubbing or edema. There are good distal pulses b/l. Dermatologic--normal skin turgor, normal color, warm and dry, no abnormal lymph nodes, no rash. Neurologic--cranial nerves II through XII grossly intact, motor and sensory examination normal. Rheumatologic--reproducible pain over lumbar region and paraspinal spasm. Psychiatric--normal affect. Assessment and Plan: 1. Intractable low back pain/severe lumbar spinal stenosis L3- 4 and L4 -5-- Dr. Hernandez from orthopedic spine surgery was consulted by the ED and asks that the patient be admitted to the medical service. Give Decadron 10 mg IV now and then 4 mg IV every 6 hours. Pain management with Tylenol, Hohenwald and / or Dilaudid as required. May add baclofen his anti-spasmodic. No signs of urinary or bowel incontinence. Level of Care Med/Surg Advanced Directives Existing Advance Directive: No Existing Living Will: No Existing Power of Recruiter Specialist: No Resuscitation Status FULL RESUSCITATION VTE Prophylaxis VTE Risk Assessment Done? Y/N: Yes Risk Level: Moderate Given or contraindicated: SCD's Social Service Consult None Apply Resident Involvement: Resident Care Provided Care Provided: Adult Hospital Medicine
[2017-01-04 23:20] VITALS: Ht 165.1 cm; Wt 66.4 kg
[2017-01-04 23:25] VITALS: BP 194/77; PULSE 60; TEMP 36.5; O2SAT 92
[2017-01-05] MEDS: HYDROmorphone INJ 1 MG/ML SYR IV PRN ×6 (00:13→21:49)
[2017-01-05] MEDS: DEXAMETHASONE INJ 4 MG in SYRINGE 0 ML IV SCH ×5 (00:20→23:51)
[2017-01-05 00:36] VITALS: BP 158/73
[2017-01-05 06:56] VITALS: BP_SYST 171; BP_SYST 172; BP_DIAS 79; BP_DIAS 80; PULSE 56; TEMP 36.6; O2SAT 96
[2017-01-05 06:58] LABS: HEMATOCRIT 39.3 % (37-47); MEAN CELL VOLUME 91.8 fL (80-100); MEAN CORPUSCULAR HEMOGLOBIN 30.8 pg (25-34); MEAN CORPUSCULAR HGB CONC 33.6 g/dl (32-36); MEAN PLATELET VOLUME 9.5 fL (7.4-10.4); PLATELET COUNT 238 K/uL (130-400); RED BLOOD COUNT 4.28 M/uL (4.2-5.4); WHITE BLOOD COUNT 9.58 K/uL (4.8-10.8)
[2017-01-05 07:33] LABS: BUN/CREATININE RATIO 28.4 (10-20); CREATININE 0.81 mg/dl (0.60-1.20); POTASSIUM 4.9 mmol/L (3.5-5.1)
[2017-01-05] MEDS: FLUTICASONE HFA 110MCG INHALER INH SCH (08:39)
[2017-01-05] MEDS: CITALOPRAM 20 MG TAB PO SCH ×2 (08:41→10:36)
[2017-01-05] MEDS: BACLOFEN 10 MG TAB PO SCH (08:42)
--- NOTE | 2017-01-05 09:23 | Orthopedic Consultation ---
Orthopedic Consultation Date of Consultation: Jan 05, 2017. Attending Physician: Saul Priest M.D. Reason for Consultation: Right leg pain History of Present Illness This is a very pleasant 71-year-old female that began experiencing incapacitating right leg pain on Friday of last week. She denies any specific trauma fall or event. She states she essentially awoke with the discomfort. She's tried several oral medications and has had 2 visits to the ER. The symptom complex involves the right buttock extending down the right anterior thigh below the knee. Markedly limits her ability to ambulate. She notes weakness in the right thigh. An sensory deficits. Left lower extremity is asymptomatic. Past Medical/Surgical History Medical Problems: (1) Lumbar radiculopathy, right Status: Acute Family History No pertinent family history Social History Smoking Status: Never Smoker Drug Use: none Marital Status: Housing Status: lives with significant other Allergies Coded Allergies: Sulfamethoxazole (Verified Allergy, Unknown, RASH, 01/01/17) Erythromycin (Unverified Adverse Reaction, Unknown, NAUSEA, 01/04/17) Home Medications Scheduled Baclofen (Lioresal), 10 MG PO DAILY Biotin (Biotin), 1 CAP PO QAM Cholecalciferol (Vitamin D3), 1 TAB PO QAM Citalopram Hydrobromide (Citalopram Hydrobromide), 1.5 TAB PO DAILY Fluticasone Propionate (Flovent Hfa), 1 PUFFS INH QAM Melatonin (Kp Melatonin), 1 TAB PO HS Meloxicam (Mobic), 2 TAB PO HS Prednisone (Prednisone), 10 MG PO DIRECTED Scheduled PRN Lorazepam (Ativan), 0.5 MG PO TID PRN for Muscle Spasms Oxycodone/Acetaminophen 5MG/325MG (Percocet 5MG/325MG), 1 TAB PO Q4H PRN for Pain Current Inpatient Medications Current Inpatient Medications Medications (Trade) Dose Ordered Sig/Brianna Route Start Time Stop Time Status Last Admin Dose Admin Ondansetron HCl (Zofran Inj) 4 mg Q6H PRN IV 01/04/17 22:00 02/03/17 21:59 Acetaminophen (Tylenol Tab) 650 mg Q6H PRN PO 01/04/17 22:00 02/03/17 21:59 Hydromorphone HCl (Dilaudid Inj) 1 mg Q3H PRN IV 01/04/17 22:00 01/18/17 21:59 01/05/17 07:22 1 MG Acetaminophen/ Hydrocodone Bitart (Baden 5/325 Tab) 1 tab Q4H PRN PO 01/04/17 22:00 01/18/17 21:59 Hydromorphone HCl (Dilaudid Inj) 2 mg Q3H PRN IV 01/04/17 22:00 01/18/17 21:59 01/05/17 00:13 2 MG Oxycodone/ Acetaminophen (Percocet 5-325mg Tab) 2 tab Q4H PRN PO 01/04/17 22:00 01/18/17 21:59 Baclofen (Lioresal Tab) 10 mg DAILY PO 01/05/17 09:00 02/04/17 08:59 Citalopram Hydrobromide (celeXA TAB) 30 mg DAILY PO 01/05/17 09:00 02/04/17 08:59 Fluticasone Propionate (Flovent Hfa 110MCG Inhaler) 1 puffs QAM INH 01/05/17 09:00 02/04/17 08:59 01/05/17 08:39 1 PUFFS Lorazepam (Ativan Tab) 0.5 mg TID PRN PO 01/04/17 22:00 02/03/17 21:59 Dexamethasone Sodium Phosphate 4 mg/Syringe 1 ml @ 1 mls/min Q6 IV 01/05/17 00:00 02/04/17 00:00 01/05/17 05:31 1 MLS/MIN Physical Exam Date Time Temp Pulse Resp B/P (MAP) Pulse Ox O2 Delivery O2 Flow Rate FiO2 01/05/17 08:49 Room Air 01/05/17 06:56 36.6 56 16 171/79 (109) 96 Room Air 172/80 (110) 01/05/17 00:36 158/73 (101) 01/04/17 23:25 36.5 60 18 194/77 (116) 92 Room Air 01/04/17 23:20 Room Air 01/04/17 23:20 Room Air 01/04/17 23:11 70 18 152/79 97 01/04/17 21:52 67 16 163/84 95 Room Air 01/04/17 19:14 57 18 164/85 97 Room Air 01/04/17 16:29 36.8 63 18 180/74 96 Room Air On physical exam she is sitting up in bed. She is cooperative and alert. She exhibits excellent strength of bilateral plantar flexion dorsiflexion and extensor hallucis longus. She has weakness to the right quadriceps compared to the left. She sensory deficits the right quad anterior thigh compared to left. Negative log roll. Diminished deep tendon reflexes. Laboratory Results Last 24 Hours Test 01/04/17 17:39 01/04/17 17:45 01/05/17 06:35 White Blood Count 9.48 K/uL 9.58 K/uL Red Blood Count 4.45 M/uL 4.28 M/uL Hemoglobin 13.7 g/dL 13.2 g/dL Hematocrit 40.4 % 39.3 % Mean Corpuscular Volume 90.8 fL 91.8 fL Mean Corpuscular Hemoglobin 30.8 pg 30.8 pg Mean Corpuscular Hemoglobin Concent 33.9 g/dl 33.6 g/dl Platelet Count 232 K/uL 238 K/uL Mean Platelet Volume 9.3 fL 9.5 fL Neutrophils (%) (Auto) 83.2 % Lymphocytes (%) (Auto) 9.5 % Monocytes (%) (Auto) 6.8 % Eosinophils (%) (Auto) 0.0 % Basophils (%) (Auto) 0.1 % Neutrophils # (Auto) 7.89 K/uL Lymphocytes # (Auto) 0.90 K/uL Monocytes # (Auto) 0.64 K/uL Eosinophils # (Auto) 0.00 K/uL Basophils # (Auto) 0.01 K/uL RDW Standard Deviation 41.8 fL 42.8 fL RDW Coefficient of Variation 12.6 % 12.7 % Immature Granulocyte % (Auto) 0.4 % Immature Granulocyte # (Auto) 0.04 K/uL Sodium Level 139 mmol/L 139 mmol/L Potassium Level 4.2 mmol/L 4.9 mmol/L Chloride Level 106 mmol/L 102 mmol/L Carbon Dioxide Level 31 mmol/L 32 mmol/L Anion Gap 2.0 mmol/L 5.0 mmol/L Blood Urea Nitrogen 19 mg/dl 23 mg/dl Creatinine 0.83 mg/dl 0.81 mg/dl Estimated GFR () 83.4 85.9 Estimated GFR (Non- 71.9 74.1 BUN/Creatinine Ratio 22.9 28.4 Random Glucose 119 mg/dl 112 mg/dl Calcium Level 9.2 mg/dl 9.0 mg/dl Urine Color YELLOW Urine Appearance CLEAR Urine pH 7.0 Urine Specific Superior 1.012 Urine Protein NEG Urine Glucose (UA) NEG Urine Ketones NEG Urine Occult Blood NEG Urine Nitrite NEG Urine Bilirubin NEG Urine Urobilinogen NEG Urine Leukocyte Esterase TRACE Urine WBC (Auto) 1-5 /hpf Urine RBC (Auto) 0-4 /hpf Urine Hyaline Casts (Auto) 0 /lpf Urine Epithelial Cells (Auto) 0-5 /lpf Urine Bacteria (Auto) NEG Est Creatinine Clear Calc Drug Dose 59.0 ml/min Assessment & Plan Assessment multilevel lumbar spinal stenosis with far lateral disc herniation L3 4 on the right. Plan long discussion with this patient and her reviewing her MRI findings and clinical course. Her MRI does demonstrate significant central and lateral recess stenosis at L2-3 L3 4 L4 5. It does demonstrate an acute far lateral disc herniation at L3 4 on the right with severe neural foraminal stenosis. She understands that this is the primary etiology of her right leg symptoms and weakness. We discussed her symptom complex prior to Friday. At that time she's highly functional did in 1 able to elicit any signs of neurogenic claudication. Subsequently from a surgical standpoint we agreed we would address the L34 level alone. This would require a lumbar decompression and fusion complete facetectomy foraminotomy to address the neural encroachment. This does induce instability and require stabilization. Risks benefits pros cons and alternatives were outlined in detail. Risk include but not limited to from anesthesia blindness sterile process nerve damage but does current transfusion infection requiring reoperation. This point she would like to proceed with radiosurgery range performed as soon as possible.
[2017-01-05 10:51] VITALS: BP 136/78; PULSE 54
[2017-01-05] MEDS: OXYCODONE/ACETAMINOPHEN 5-325 TAB PO PRN ×3 (11:13→23:47)
--- NOTE | 2017-01-05 12:09 | EMERGENCY ROOM VISIT NOTE ---
History Report prepared by Behzad: Raymond Dockery Under the Supervision of: Dr. Rico Doyle M.D. First contact with patient: 17:03 Chief Complaint: HIP PAIN Stated Complaint: SEVERE HIP/KNEE PAIN WITH NUMBNESS History of Present Illness The patient is a 71 year old female who presents to the Emergency Room with complaints of constant right lower back pain that started four days ago. She rates her pain as a 10/10 in severity, The patient states that the pain radiates to her front and down to her knee and is worsened with movement. The patient states that the pain prompted her to visit the ED January 01. She reports that she had radiology done, but denies any imaging of her lower back. The patient states that she was discharged home and was still in pain. The patient states that she was prescribed Ativan, Percocet, and Prednisone, but denies any relief of symptoms. The patient also states that she is experiencing a headache and nausea. She states that she has a history of sciatica, but admits her current symptoms are worse than her sciatica symptoms.The patient also reports a history of migraines and hypertension, which she was admitted for two years ago. She denies LOC, fevers, chills, diaphoresis, visual changes, neck pain, chest pain, breathing difficulties, nausea, vomiting, abdominal pain, melena, hematochezia, urinary symptoms, numbness, weakness, lymphadenopathy, rash, or other complaints. Source of History: patient Onset: three days ago Position: other (right hip ) Symptom Intensity: 10/10 Timing: constant Modifying Factors (Worsening): movement Associated Symptoms: + headache, + nausea Review of Systems See HPI for pertinent positives and negatives. A total of ten systems were reviewed and were otherwise negative. Past Medical & Surgical Medical Problems: (1) Anxiety (2) Depression (3) Fibromyalgia (4) GERD (gastroesophageal reflux disease) (5) Osteoarthritis (6) Radiculopathy of lumbar region Surgical Problems: (1) H/O laminectomy (2) S/P cholecystectomy Family History No pertinent family history Social History Smoking Status: Never Smoker Alcohol Use: none Drug Use: none Marital Status: Housing Status: lives with significant other Current/Historical Medications Scheduled Baclofen (Lioresal), 10 MG PO DAILY Biotin (Biotin), 1 CAP PO QAM Cholecalciferol (Vitamin D3), 1 TAB PO QAM Citalopram Hydrobromide (Citalopram Hydrobromide), 1.5 TAB PO DAILY Fluticasone Propionate (Flovent Hfa), 1 PUFFS INH QAM Melatonin (Kp Melatonin), 1 TAB PO HS Meloxicam (Mobic), 2 TAB PO HS Prednisone (Prednisone), 10 MG PO DIRECTED Scheduled PRN Lorazepam (Ativan), 0.5 MG PO TID PRN for Muscle Spasms Oxycodone/Acetaminophen 5MG/325MG (Percocet 5MG/325MG), 1 TAB PO Q4H PRN for Pain Allergies Coded Allergies: Sulfamethoxazole (Verified Allergy, Unknown, RASH, 01/01/17) Erythromycin (Unverified Adverse Reaction, Unknown, NAUSEA, 01/04/17) Physical Exam Vital Signs Date Time Temp Pulse Resp B/P (MAP) Pulse Ox O2 Delivery O2 Flow Rate FiO2 01/04/17 21:52 67 16 163/84 95 Room Air 01/04/17 19:14 57 18 164/85 97 Room Air 01/04/17 16:29 36.8 63 18 180/74 96 Room Air Physical Exam GENERAL: tearful, awake, alert, uncomfortable-appearing, in moderate distress HENT: Normocephalic, atraumatic. Oropharynx unremarkable. EYES: Normal conjunctiva. Sclera non-icteric. NECK: Supple. No nuchal rigidity. FROM. No JVD. RESPIRATORY: Clear to auscultation. CARDIAC: Regular rate, normal rhythm. Extremities warm and well perfused. Pulses equal. ABDOMEN: Soft, non-distended. No tenderness to palpation. No rebound or guarding. No masses. RECTAL: Deferred. MUSCULOSKELETAL: Chest examination reveals no tenderness. The back is symmetrical on inspection without obvious abnormality. There is no CVA tenderness to palpation. Tenderness in right lower lumbar region and right sciatic notch. No joint edema. LOWER EXTREMITIES: Calves are equal size bilaterally and non-tender. No edema. No discoloration. NEURO: Normal sensorium. No sensory or motor deficits noted. Symmetric reflexes. Normal EHL function. No saddle anesthesia. SKIN: No rash or jaundice noted. Medical Decision & Procedures ER Provider Diagnostic Interpretation: MRI OF THE LUMBAR SPINE WITHOUT CONTRAST CLINICAL HISTORY: Back pain-intractable right hip/leg pain, ?disc COMPARISON STUDY: Lumbar spine radiographs January 01, 2017. TECHNIQUE: Utilizing a 1.5 Jenny magnet and dedicated coil, multiplanar, multiecho imaging of the lumbar spine was performed without IV contrast. FINDINGS: For purposes of numbering on this exam, the L5-S1 disc space is assigned to axial image 23 of 25. Alignment of lumbar spine is anatomic. Vertebral body heights are maintained and there is no suspicious marrow replacement. There is no intracanalicular mass or fluid collection. The conus terminates at the upper L1 level. Incidental note is made of mild dilatation of the common bile duct, measuring 9 mm, status post cholecystectomy. L1-2: The central canal and neural foramen are patent. L2-3: There is disc bulge with ligamentous hypertrophy and facet arthrosis. The findings result in moderate narrowing of the central canal and lateral recesses with mild narrowing of both neural foramen. L3-4: There is disc bulge with ligamentous hypertrophy and facet arthrosis that result in severe narrowing of the central canal and lateral recesses as well as the right neural foramen. Note is made of a suspected superimposed right foraminal disc protrusion. There is mild narrowing of the left neural foramen. L4-5: There is disc bulge with facet arthrosis and marked ligamentous hypertrophy that result in severe narrowing of the central canal and lateral recesses with mild narrowing of both neural foramen. L5-S1: The central canal is patent. There is facet arthrosis. There is mild narrowing of both neural foramen. IMPRESSION: 1. Severe narrowing of the central canal, lateral recesses and right neural foramen at L3-L4 due to disc bulge, ligamentous hypertrophy and facet arthrosis with a suspected superimposed right foraminal disc protrusion. 2. Severe narrowing of the central canal and lateral recesses at L4-L5 predominantly due to facet arthrosis with marked ligamentous hypertrophy. Mild disc bulge. 3. Moderate central canal stenosis at L2-L3 due to disc bulge, ligamentous hypertrophy and facet arthrosis. 4. Mild biliary ductal dilatation. This is likely related to prior cholecystectomy although could be correlated with obstructive liver function tests. Electronically signed by: Rosalino Kelly M.D. 01/04/2017 8:23 PM Dictated Date/Time: 01/04/2017 8:16 PM Laboratory Results Test 01/04/17 17:39 01/04/17 17:45 Immature Granulocyte % (Auto) 0.4 % White Blood Count 9.48 K/uL (4.8-10.8) Red Blood Count 4.45 M/uL (4.2-5.4) Hemoglobin 13.7 g/dL (12.0-16.0) Hematocrit 40.4 % (37-47) Mean Corpuscular Volume 90.8 fL (80-100) Mean Corpuscular Hemoglobin 30.8 pg (25-34) Mean Corpuscular Hemoglobin Concent 33.9 g/dl (32-36) Platelet Count 232 K/uL (130-400) Mean Platelet Volume 9.3 fL (7.4-10.4) Neutrophils (%) (Auto) 83.2 % Lymphocytes (%) (Auto) 9.5 % Monocytes (%) (Auto) 6.8 % Eosinophils (%) (Auto) 0.0 % Basophils (%) (Auto) 0.1 % Neutrophils # (Auto) 7.89 K/uL (1.4-6.5) Lymphocytes # (Auto) 0.90 K/uL (1.2-3.4) Monocytes # (Auto) 0.64 K/uL (0.11-0.59) Eosinophils # (Auto) 0.00 K/uL (0-0.5) Basophils # (Auto) 0.01 K/uL (0-0.2) Immature Granulocyte # (Auto) 0.04 K/uL (0.00-0.02) Urine Color YELLOW Urine Appearance CLEAR (CLEAR) Urine pH 7.0 (4.5-7.5) Urine Specific [place] 1.012 (1.000-1.030) Urine Protein NEG (NEG) Urine Glucose (UA) NEG (NEG) Urine Ketones NEG (NEG) Urine Occult Blood NEG (NEG) Urine Nitrite NEG (NEG) Urine Bilirubin NEG (NEG) Urine Urobilinogen NEG (NEG) Urine Leukocyte Esterase TRACE (NEG) Urine WBC (Auto) 1-5 /hpf (0-5) Urine RBC (Auto) 0-4 /hpf (0-4) Urine Hyaline Casts (Auto) 0 /lpf (0-5) Urine Epithelial Cells (Auto) 0-5 /lpf (0-5) Urine Bacteria (Auto) NEG (NEG) Laboratory results reviewed by me Medications Administered Medications (Trade) Dose Ordered Sig/Brianna Route Start Time Stop Time Status Last Admin Dose Admin Ondansetron HCl (Zofran Inj) 4 mg NOW STAT IV 01/04/17 17:16 01/04/17 17:19 DC 01/04/17 17:49 4 MG Hydromorphone HCl (Dilaudid Inj) 1 mg Q15M PRN IV 01/04/17 17:30 01/04/17 23:51 DC 01/04/17 19:20 1 MG Dexamethasone Sodium Phosphate (Decadron Inj) 10 mg NOW ONCE IV 01/04/17 20:30 01/04/17 20:31 DC 01/04/17 20:34 10 MG Hydromorphone HCl (Dilaudid Inj) 1 mg STK-MED ONCE .ROUTE 01/04/17 20:32 01/04/17 20:33 DC 01/04/17 20:33 1 MG Hydromorphone HCl (Dilaudid Inj) 1 mg Q3H PRN IV 01/04/17 22:00 01/18/17 21:59 01/05/17 10:36 1 MG Hydromorphone HCl (Dilaudid Inj) 2 mg Q3H PRN IV 01/04/17 22:00 01/18/17 21:59 01/05/17 00:13 2 MG Oxycodone/ Acetaminophen (Percocet 5-325mg Tab) 2 tab Q4H PRN PO 01/04/17 22:00 01/18/17 21:59 01/05/17 11:13 2 TAB ED Course 1706: The patient was evaluated in room B09. A complete history and physical exam was performed. 1716: Zofran Injection 4 mg IV. 0: Dilaudid Injection 1 mg IV. 1915: I reevaluated the patient and she is resting comfortably. 2025: Consult placed with orthopedic spine. 2030: Patient was reevaluated. Updated on MRI findings. 2104: Discussed the case with Dr. Hernandez. He would like to have the hospitalist admit for pain control and preoperative clearance. 2114: Discussed the case with Dr. Micha Tate. He will evaluate the patient for further management. Medical Decision Triage Nursing notes reviewed. The patient's presentation and history were concerning for back pain. Etiologies such as lumbago, sciatica, cauda equina, epidural abscess, osteomyelitis, fracture, aortic disease, metastatic disease, infection, renal colic, gastrointestinal, as well as others were entertained. The patient was evaluated. She was very uncomfortable. She was given Zofran and Dilaudid and did feel better with this. She did require a second dose of Dilaudid. Her blood work was unremarkable. The patient went for MRI imaging which did reveal significant disc disease and impingement. The patient was given IV Decadron. I did consult with Dr. Hernandez of orthopedic spine. The patient will need admission for further treatment. He was in agreement and asked for the hospitalist to admit the patient. I discussed the case with Dr. Micha Tate and he will see the patient in the ED for further management. I gave my usual and customary discussion regarding this issue. Medication Reconcilliation Current Medication List: was personally reviewed by me Blood Pressure Screening Patient's blood pressure: Elevated blood pressure Blood pressure disposition: Elevated BP felt to be situational Consults Consulting Physician: Dr. Hernandez Additional Consults: Consulted Physician: Dr. Micha Tate Impression Primary Impression: Intractable low back pain Additional Impression: Lumbar disc herniation Scribe Attestation The scribe's documentation has been prepared under my direction and personally reviewed by me in its entirety. I confirm that the note above accurately reflects all work, treatment, procedures, and medical decision making performed by me. Departure Information Dispostion Being Evaluated By Hospitalist Referrals Almas Esparza M.D. (PCP) Patient Instructions My [facility] Problem Qualifiers
--- NOTE | 2017-01-05 14:40 | Progress Note ---
Subjective Date of Service: Jan 05, 2017. Subjective pt is fairly comfortable and has no pain is not standing or moving, pain is limited to right leg from buttock wrapping around thigh to inner knee and occasionally to foot, severe and intense ache, acute over last few days only no other issues good exercise tolerance, no chest pain or shortness of breath, can lay flat to sleep Problem List Medical Problems: (1) Lumbar radiculopathy, right Status: Acute Review of Systems Constitutional: No fever, No chills Respiratory: No cough, No sputum, No shortness of breath, No dyspnea on exertion Cardiac: No chest pain, No orthopnea, No PND, No edema Abdomen: No pain, No nausea, No vomiting, No diarrhea Musculoskeletal: + joint pain, + muscle pain, No swelling Neurologic: No memory loss, No paralysis, No weakness, No numbness/tingling Psychiatric: No depression symptoms, No anhedonism Objective Vital Signs Date Time Temp Pulse Resp B/P (MAP) Pulse Ox O2 Delivery O2 Flow Rate FiO2 01/05/17 06:56 36.6 56 16 171/79 (109) 96 Room Air 172/80 (110) 01/05/17 00:36 158/73 (101) 01/04/17 23:25 36.5 60 18 194/77 (116) 92 Room Air 01/04/17 23:20 Room Air 01/04/17 23:20 Room Air 01/04/17 23:11 70 18 152/79 97 01/04/17 21:52 67 16 163/84 95 Room Air 01/04/17 19:14 57 18 164/85 97 Room Air 01/04/17 16:29 36.8 63 18 180/74 96 Room Air Physical Exam General Appearance: WD/WN, + mild distress Eyes: PERRL, EOMI Neck: supple, no JVD Respiratory/Chest: chest non-tender, no accessory muscle use Cardiovascular: regular rate, rhythm, no murmur Abdomen: normal bowel sounds, non tender, soft Extremities: no pedal edema, no calf tenderness Neurologic/Psychiatric: alert, oriented x 3 Laboratory Results Last 24 Hours Test 01/04/17 17:39 01/04/17 17:45 01/05/17 06:35 White Blood Count 9.48 K/uL 9.58 K/uL Red Blood Count 4.45 M/uL 4.28 M/uL Hemoglobin 13.7 g/dL 13.2 g/dL Hematocrit 40.4 % 39.3 % Mean Corpuscular Volume 90.8 fL 91.8 fL Mean Corpuscular Hemoglobin 30.8 pg 30.8 pg Mean Corpuscular Hemoglobin Concent 33.9 g/dl 33.6 g/dl Platelet Count 232 K/uL 238 K/uL Mean Platelet Volume 9.3 fL 9.5 fL Neutrophils (%) (Auto) 83.2 % Lymphocytes (%) (Auto) 9.5 % Monocytes (%) (Auto) 6.8 % Eosinophils (%) (Auto) 0.0 % Basophils (%) (Auto) 0.1 % Neutrophils # (Auto) 7.89 K/uL Lymphocytes # (Auto) 0.90 K/uL Monocytes # (Auto) 0.64 K/uL Eosinophils # (Auto) 0.00 K/uL Basophils # (Auto) 0.01 K/uL RDW Standard Deviation 41.8 fL 42.8 fL RDW Coefficient of Variation 12.6 % 12.7 % Immature Granulocyte % (Auto) 0.4 % Immature Granulocyte # (Auto) 0.04 K/uL Sodium Level 139 mmol/L Potassium Level 4.2 mmol/L Chloride Level 106 mmol/L Carbon Dioxide Level 31 mmol/L Anion Gap 2.0 mmol/L Blood Urea Nitrogen 19 mg/dl Creatinine 0.83 mg/dl Estimated GFR () 83.4 Estimated GFR (Non- 71.9 BUN/Creatinine Ratio 22.9 Random Glucose 119 mg/dl Calcium Level 9.2 mg/dl Urine Color YELLOW Urine Appearance CLEAR Urine pH 7.0 Urine Specific [place] 1.012 Urine Protein NEG Urine Glucose (UA) NEG Urine Ketones NEG Urine Occult Blood NEG Urine Nitrite NEG Urine Bilirubin NEG Urine Urobilinogen NEG Urine Leukocyte Esterase TRACE Urine WBC (Auto) 1-5 /hpf Urine RBC (Auto) 0-4 /hpf Urine Hyaline Casts (Auto) 0 /lpf Urine Epithelial Cells (Auto) 0-5 /lpf Urine Bacteria (Auto) NEG Assessment and Plan 71F with radicular leg pain and HNP L3-4, and facet arthropathy L4-5 with severe narrowing of spinal canal, a PMHx of Anxiety, depression, fibromyalgia, GERD, Radicular back pain, parenteral opiates, tylenol and baclofen, spine surgery consult, has no cardiovascular symptoms pre op, will say at this point is medically optimized for or Asthma, stable on flovent depression and adjunctive pain control citalopram DVT Proph: SCDs, no pharmacologic AC because of possible surgery 01/06. I
[2017-01-05 15:56] VITALS: BP 176/80; PULSE 55; TEMP 36.8; O2SAT 95
[2017-01-05 18:54] VITALS: BP 176/83
[2017-01-05] MEDS ORDERED: NON-FORMULARY MEDICATION (Melatonin (Kp Melatonin) 1 TAB) PO SCH (21:00)
[2017-01-05 22:51] VITALS: BP 177/80; PULSE 61; TEMP 36.8; O2SAT 95
[2017-01-06] VITALS (13 sets, daily range): BP systolic 122–189; BP diastolic 66–90; PULSE 54–66; TEMP 36.5–36.9; O2SAT 93–98
[2017-01-06] MEDS ORDERED: HydrALAZINE HCL 20 MG/ML VIAL IV. STA (01:47)
[2017-01-06] MEDS: HYDROmorphone INJ 1 MG/ML SYR IV PRN ×3 (04:17→11:46)
[2017-01-06] MEDS: DEXAMETHASONE INJ 4 MG in SYRINGE 0 ML IV SCH ×4 (06:05→23:28)
[2017-01-06 06:06] LABS: HEMATOCRIT 39.2 % (37-47); MEAN CELL VOLUME 89.7 fL (80-100); MEAN CORPUSCULAR HEMOGLOBIN 30.9 pg (25-34); MEAN CORPUSCULAR HGB CONC 34.4 g/dl (32-36); MEAN PLATELET VOLUME 9.7 fL (7.4-10.4); PLATELET COUNT 216 K/uL (130-400); RED BLOOD COUNT 4.37 M/uL (4.2-5.4); WHITE BLOOD COUNT 9.65 K/uL (4.8-10.8)
[2017-01-06 06:39] LABS: BUN/CREATININE RATIO 33.3 (10-20); CREATININE 0.81 mg/dl (0.60-1.20); POTASSIUM 4.2 mmol/L (3.5-5.1)
[2017-01-06] MEDS ORDERED: LABETALOL HCL IV 5 MG/ML 20ML IV PRN (08:15)
[2017-01-06] MEDS ORDERED: FLUMAZENIL 0.1 MG/1 ML 10 ML VIAL IV PRN (08:15)
[2017-01-06] MEDS ORDERED: HYDROmorphone INJ 1 MG/ML SYR IV PRN (08:15)
[2017-01-06] MEDS ORDERED: PHENYLEPHRINE 100MCG/ML 5ML SYR IV PRN (08:15)
[2017-01-06] MEDS ORDERED: ONDANSETRON INJ 2 MG/ML 2 ML VIAL IV PRN (08:15)
[2017-01-06] MEDS ORDERED: EpHEDrine SULFATE INJ 50 MG/ML AMP IV PRN (08:15)
[2017-01-06] MEDS ORDERED: ATROPINE SULFATE 0.1 MG/ML 5ML SYR IV PRN (08:15)
[2017-01-06] MEDS ORDERED: MEPERIDINE HCL 25 MG/ML CARP IV PRN (08:15)
[2017-01-06] MEDS ORDERED: MoRPHine SULFATE 10 MG/ML CARP/VIAL IV PRN (08:15)
[2017-01-06] MEDS ORDERED: NALOXONE HCL 0.4 MG/1 ML VIAL/CARP IV PRN ×2 (08:15→15:30)
[2017-01-06] MEDS: FLUTICASONE HFA 110MCG INHALER INH SCH (08:42)
[2017-01-06] MEDS: CITALOPRAM 20 MG TAB PO SCH (09:00)
[2017-01-06] MEDS ORDERED: HydrALAZINE HCL 20 MG/ML VIAL IV. PRN (10:15)
[2017-01-06] MEDS: BACLOFEN 10 MG TAB PO SCH (14:25)
[2017-01-06] MEDS: D5W AND 1/2NSS 1,000 ML IV SCH (14:31)
--- NOTE | 2017-01-06 15:11 | Anesthesiology Progress Note ---
Anesthesia Progress Note Date of Service Jan 06, 2017. Progress Notes This is a 71 y/o w female w/ lumbar disc disease for lumbar decompression and fusion. PMHx is significant for GERD(stable),Asthma(stable),HTN,Dyslipidemia, benign essential tremors, and migraine H/A's. Discussed anesthesia w/pt,risks vs benefits,all questions answered.Informed consent obtained. ASA 3
[2017-01-06] MEDS ORDERED: SODIUM CHLORIDE 0.9% 1000ML 1,000 ML IV SCH (15:27)
--- NOTE | 2017-01-06 15:47 | Progress Note ---
Progress Note Date of Service Jan 06, 2017. Progress Note Met with patient today. She understands we will not be able to perform surgery this evening secondary to an urgent case. We'll plan for surgery tomorrow a.m. She'll made nothing by mouth after midnight. We did review her case and addressed further questions. At this time the plan for or tomorrow lumbar decompression fusion L3 4.
[2017-01-06] MEDS: OXYCODONE/ACETAMINOPHEN 5-325 TAB PO PRN ×2 (16:04→21:19)
--- NOTE | 2017-01-06 16:14 | Hospitalist Progress Note ---
Hospitalist Progress Note Date of Service Jan 06, 2017. (Florence Gill PA-C) Subjective Pt evaluation today including: conversation w/ patient, conversation w/ family , physical exam, chart review, lab review, review of studies, review of inpatient medication list Patient seen and evaluated. No acute events overnight. Reporting no change in her symptoms but states they are manageable at rest, mostly exacerbated with ambulation. She has had elevated BPs in the past but stated that she was D/C'd from them because she had better control. -- Records reviewed and she was placed on Amlodipine and Lisinopril previously BPs may be pain response/stress - will utilize PRN hydralazine but can consider reinstituting medication. Constitutional: No fever, No chills Eyes: No worsening of vision ENT: No unusual epistaxis, No nasal symptoms, No trouble swallowing Respiratory: No cough, No shortness of breath Cardiovascular: No chest pain, No palpitations Abdomen: No pain, No nausea, No vomiting, No diarrhea, No constipation Musculoskeletal: + problem reported (R radicular leg pain), No calf pain Female : No dysuria, No incontinence Heme: No abnormal bleeding/bruising Skin: No rash, No itch (Florence Gill, FIONAC) Medications Current Inpatient Medications Medications (Trade) Dose Ordered Sig/Brianna Route Start Time Stop Time Status Last Admin Dose Admin Ondansetron HCl (Zofran Inj) 4 mg Q6H PRN IV 01/04/17 22:00 02/03/17 21:59 Acetaminophen (Tylenol Tab) 650 mg Q6H PRN PO 01/04/17 22:00 02/03/17 21:59 Hydromorphone HCl (Dilaudid Inj) 1 mg Q3H PRN IV 01/04/17 22:00 01/18/17 21:59 Future Hold 01/05/17 14:36 1 MG Acetaminophen/ Hydrocodone Bitart ([place] 5/325 Tab) 1 tab Q4H PRN PO 01/04/17 22:00 01/18/17 21:59 Hydromorphone HCl (Dilaudid Inj) 2 mg Q3H PRN IV 01/04/17 22:00 01/18/17 21:59 Future Hold 01/06/17 11:46 2 MG Oxycodone/ Acetaminophen (Percocet 5-325mg Tab) 2 tab Q4H PRN PO 01/04/17 22:00 01/18/17 21:59 01/05/17 23:47 2 TAB Baclofen (Lioresal Tab) 10 mg DAILY PO 01/05/17 09:00 02/04/17 08:59 Citalopram Hydrobromide (celeXA TAB) 30 mg DAILY PO 01/05/17 09:00 02/04/17 08:59 01/05/17 10:36 30 MG Fluticasone Propionate (Flovent Hfa 110MCG Inhaler) 1 puffs QAM INH 01/05/17 09:00 02/04/17 08:59 01/06/17 08:42 1 PUFFS Lorazepam (Ativan Tab) 0.5 mg TID PRN PO 01/04/17 22:00 02/03/17 21:59 Dexamethasone Sodium Phosphate 4 mg/Syringe 1 ml @ 1 mls/min Q6 IV 01/05/17 00:00 02/04/17 00:00 01/06/17 12:21 1 MLS/MIN Hydralazine HCl (HydrALAZINE INJ) 10 mg Q6 PRN IV. 01/06/17 10:15 02/05/17 10:14 Dextrose/Sodium Chloride 1,000 ml @ 75 mls/hr [id number] IV 01/06/17 14:15 02/05/17 14:14 01/06/17 14:31 75 MLS/HR Naloxone HCl (Narcan Inj) 0.1 mg Q5M PRN IV 01/06/17 15:30 02/05/17 15:29 Hydromorphone HCl (Dilaudid [employer]) 25 mg PRN PRN IV 01/06/17 15:30 01/20/17 15:29 Sodium Chloride 1,000 ml @ 15 mls/hr Q24H IV 01/06/17 15:27 02/05/17 15:26 (Florence Gill, PAXimenaC) Objective Vital Signs Date Time Temp Pulse Resp B/P (MAP) Pulse Ox O2 Delivery O2 Flow Rate FiO2 01/06/17 15:05 36.7 54 18 179/76 (110) 95 Room Air 01/06/17 08:30 Room Air 01/06/17 06:58 36.9 55 17 166/72 (103) 93 Room Air 01/06/17 06:02 66 169/79 (109) 01/06/17 02:53 63 167/69 (101) 01/06/17 02:10 174/84 (114) 01/06/17 01:31 58 187/90 (122) 01/06/17 01:30 189/77 (114) 01/05/17 23:30 Room Air 01/05/17 22:51 36.8 61 15 177/80 (112) 95 Room Air 01/05/17 20:00 Room Air 01/05/17 18:54 176/83 (114) 01/05/17 16:21 Room Air (Florence Gill PA-C) Physical Exam General Appearance: WD/WN, no apparent distress Eyes: sclerae normal ENT: hearing grossly normal Neck: supple, no JVD, trachea midline Respiratory/Chest: lungs clear, normal breath sounds, no respiratory distress, no accessory muscle use Cardiovascular: regular rate, rhythm, no gallop, no murmur Abdomen: normal bowel sounds, non tender, soft Extremities: no pedal edema, no calf tenderness Neurologic/Psychiatric: alert, oriented x 3 Skin: normal color, warm/dry (Florence Gill PA-C) Laboratory Results Last 24 Hours Test 01/06/17 05:13 White Blood Count 9.65 K/uL Red Blood Count 4.37 M/uL Hemoglobin 13.5 g/dL Hematocrit 39.2 % Mean Corpuscular Volume 89.7 fL Mean Corpuscular Hemoglobin 30.9 pg Mean Corpuscular Hemoglobin Concent 34.4 g/dl RDW Standard Deviation 40.8 fL RDW Coefficient of Variation 12.5 % Platelet Count 216 K/uL Mean Platelet Volume 9.7 fL Sodium Level 138 mmol/L Potassium Level 4.2 mmol/L Chloride Level 104 mmol/L Carbon Dioxide Level 30 mmol/L Anion Gap 4.0 mmol/L Blood Urea Nitrogen 27 mg/dl Creatinine 0.81 mg/dl Est Creatinine Clear Calc Drug Dose 59.0 ml/min Estimated GFR () 85.9 Estimated GFR (Non- 74.1 BUN/Creatinine Ratio 33.3 Random Glucose 115 mg/dl Calcium Level 9.0 mg/dl (Florence Gill PA-C) Assessment and Plan 71F with radicular leg pain and HNP L3-4, and facet arthropathy L4-5 with severe narrowing of spinal canal Back Pain with R Radicular Pain of Leg: - Decadron 4 mg IV Q6H, Baclofen 10 mg daily, and Ativan PRN spasms - Spine following - plan for OR tomorrow per Dr. Hernandez for decompression - patient is medically optimal for surgery -- Plan to initiate TRANSPORTATION EQUIPMENT PAINTER HTN: - Largely systolic in nature - can treat with PRN Hydralazine - Was previously on Lisinopril and Amlodipine but D/C'd as outpatient due to better control Asthma without Exacerbation: - Flovent 1 puff daily Depression/Anxiety: - Celexa 30 mg daily DVT Prophylaxis: SCDs; avoid chemical prophylaxis with pending surgery Code Status: FULL RESUSCITATION Disposition: OR tomorrow - and will obtain PT/OT Continued [facility] stay due to: multiple IV medications needed Discharge planning: uncertain (Florence Gill PA-C) Reviewed: Pt Seen/Exam by Me (Jeannine Lilly MD) History Physician Billet Sawyer Supervision Note: I interviewed and examined the patient. Discussed with MACKENZIE Gill and agree with findings and plan as documented in the note. Any exceptions or clarifications are listed here: Patient here with intractable lumbar radiculopathy awaiting lumbar decompression surgery today. Her blood pressure remains significantly elevated throughout the day which could be secondary to pain but she also has a previous history of hypertension on medication for treatment. Otherwise, she denies chest pain or shortness of breath. She is medically at average perioperative cardiovascular risk for this intermediate risk surgery and is awaiting to proceed with surgery. Vitals reviewed, remains hypertensive No acute distress, thin, alert awake oriented 3 Regular rate and rhythm, no murmurs Rubs Lungs Clear to Auscultation Bilaterally, Breathing Unlabored Abdomen Positive Bowel Sounds Soft Nontender Nondistended Extremities No Edema, No Calf Tenderness, 2+ Dorsalis Pedis Pulses 71-year-old Female Here with Intractable Pain from Lumbar Radiculopathy from Severe Stenosis. -Also with Uncontrolled Hypertension -We'll Start Amlodipine 5 Mg by Mouth daily at bedtime and follow blood pressures -Start IV fluids while nothing by mouth awaiting surgery-surgery has now been postponed until tomorrow, nothing by mouth after midnight again tonight -SCDs only for DVT prophylaxis given upcoming surgery Documented By: Jeannine Lilly (Jeannine Lilly MD)
[2017-01-06] MEDS: HYDROmorphone HCL 0.5MG/ML 50 ML CASSETTE IV PRN ×2 (16:45→23:03)
[2017-01-06] MEDS: AMLODIPINE BESYLATE 5 MG TAB PO SCH (21:18)
[2017-01-07] VITALS (9 sets, daily range): BP systolic 139–177; BP diastolic 64–81; PULSE 59–70; TEMP 36.5–37.2; O2SAT 93–100
[2017-01-07] MEDS: D5W AND 1/2NSS 1,000 ML IV SCH (03:51)
[2017-01-07] MEDS: DEXAMETHASONE INJ 4 MG in SYRINGE 0 ML IV SCH (05:44)
[2017-01-07 06:56] LABS: HEMATOCRIT 40.9 % (37-47); MEAN CELL VOLUME 90.1 fL (80-100); MEAN CORPUSCULAR HEMOGLOBIN 29.5 pg (25-34); MEAN CORPUSCULAR HGB CONC 32.8 g/dl (32-36); MEAN PLATELET VOLUME 9.7 fL (7.4-10.4); PLATELET COUNT 210 K/uL (130-400); RED BLOOD COUNT 4.54 M/uL (4.2-5.4); WHITE BLOOD COUNT 7.39 K/uL (4.8-10.8)
[2017-01-07] MEDS: HYDROmorphone HCL 0.5MG/ML 50 ML CASSETTE IV PRN ×4 (06:58→22:59)
[2017-01-07 07:19] LABS: BUN/CREATININE RATIO 36.5 (10-20); CALCIUM 8.8 mg/dl (8.5-10.1); CREATININE 0.68 mg/dl (0.60-1.20); POTASSIUM 3.9 mmol/L (3.5-5.1)
[2017-01-07] MEDS: BACLOFEN 10 MG TAB PO SCH (08:34)
[2017-01-07] MEDS: CITALOPRAM 20 MG TAB PO SCH (08:34)
[2017-01-07] MEDS: FLUTICASONE HFA 110MCG INHALER INH SCH (08:35)
[2017-01-07] MEDS ORDERED: FENTANYL CITRATE INJ 50 MCG/1 ML 2 ML VIAL ONE ×3 (09:02→10:48)
[2017-01-07] MEDS ORDERED: MIDAZOLAM HCL 1 MG/ML 2ML VIAL ONE (09:02)
--- NOTE | 2017-01-07 09:22 | History & Physical Bridge Note ---
H&P Re-Evaluation Bridge Note: I have examined the patient, reviewed the History & Physical and in the interval since the performance of the History & Physical I have noted the following changes of clinical significance: decompression fusion L3-4 possible L4-5
[2017-01-07] MEDS ORDERED: CEFAZOLIN SOD 1000MG/55 ML D5W IV ONE (09:49)
[2017-01-07] MEDS ORDERED: SODIUM CHLORIDE 0.9% PF 50 ML VIAL ONE (09:54)
[2017-01-07] MEDS ORDERED: BACITRACIN 50000 UNIT VIAL ONE (09:54)
[2017-01-07] MEDS ORDERED: BUPIVACAINE/EPINEPHRINE 0.5% MPF 1:200,000 10 ML VIAL ONE (09:54)
[2017-01-07] MEDS ORDERED: NURSING VERBAL MED ORDER ONE (10:00)
[2017-01-07] MEDS ORDERED: ONDANSETRON INJ 2 MG/ML 2 ML VIAL IV PRN ×2 (10:00→12:00)
[2017-01-07] MEDS ORDERED: EpHEDrine SULFATE INJ 50 MG/ML AMP IV PRN (10:00)
[2017-01-07] MEDS ORDERED: PROMETHAZINE HCL INJ 6.25 MG in SODIUM CHLORIDE 0.9% 50ML 50 ML IV PRN (10:00)
[2017-01-07] MEDS ORDERED: ATROPINE SULFATE 0.1 MG/ML 5ML SYR IV PRN (10:00)
[2017-01-07] MEDS ORDERED: HYDROmorphone INJ 1 MG/ML SYR IV PRN (10:00)
[2017-01-07] MEDS ORDERED: HYDROmorphone INJ 2 MG/ML SYR/VIAL ONE ×2 (10:28→12:02)
[2017-01-07] MEDS ORDERED: FLOSEAL HEMOSTATIC MATRIX 10ML TOP ONE (11:57)
[2017-01-07] MEDS ORDERED: SODIUM CHLORIDE 0.9% 1000ML 1,000 ML IV SCH (11:58)
[2017-01-07] MEDS ORDERED: NALOXONE HCL 0.4 MG/1 ML VIAL/CARP IV PRN ×2 (12:00)
[2017-01-07] MEDS ORDERED: PROMETHAZINE HCL INJ 12.5 MG in SODIUM CHLORIDE 0.9% 50ML 50 ML IV PRN (12:00)
[2017-01-07] MEDS ORDERED: DO NOT ADMINISTER FLU VACCINE PRN ×3 (12:00)
[2017-01-07] MEDS ORDERED: SOD PHOSPHATE/SOD BIPHOSPHATE ENEMA 132 ML BTL PR PRN ×2 (12:00→15:30)
[2017-01-07] MEDS ORDERED: ALUMINUM/MAGNESIUM SUSP 30 ML UDC PO PRN (12:00)
[2017-01-07] MEDS ORDERED: DO NOT ADMINISTER PNEUMOCOCCAL VACCINE PRN ×2 (12:00)
[2017-01-07] MEDS ORDERED: METOCLOPRAMIDE HCL INJ 5 MG/ML 2 ML VIAL IV PRN (12:00)
[2017-01-07] MEDS ORDERED: hydrOXYzine HCL 25 MG TAB PO PRN (12:00)
[2017-01-07] MEDS ORDERED: FAMOTIDINE 20 MG TAB PO PRN (12:00)
[2017-01-07] MEDS ORDERED: MAGNESIUM HYDROXIDE SUSP 30 ML UDC PO PRN (12:00)
[2017-01-07] MEDS ORDERED: LORAZEPAM INJ 0.5 MG in SYRINGE 0.75 ML IV PRN (12:00)
[2017-01-07] MEDS ORDERED: BISACODYL 10 MG SUPP PR PRN ×2 (12:00→15:30)
[2017-01-07] MEDS ORDERED: PROPOFOL IV EMULSION 10 MG/ML 20 ML VIAL IV ONE (12:01)
[2017-01-07] MEDS ORDERED: ONDANSETRON INJ 2 MG/ML 2 ML VIAL ONE ×2 (12:01→12:05)
[2017-01-07] MEDS ORDERED: ROCURONIUM BROMIDE 10 MG/ML 5 ML VIAL ONE (12:01)
[2017-01-07] MEDS ORDERED: LIDOCAINE HCL 2% 2 ML VIAL (20MG/ML) ONE (12:01)
[2017-01-07] MEDS ORDERED: DEXAMETHASONE SOD INJ 4 MG/ML VIAL ONE (12:01)
[2017-01-07] MEDS ORDERED: KETOROLAC TROMETHAMINE 30 MG/ML VIAL ONE (12:05)
[2017-01-07] MEDS ORDERED: LABETALOL HCL IV 5 MG/ML 20ML IV ONE (12:05)
[2017-01-07] MEDS ORDERED: HydrALAZINE HCL 20 MG/ML VIAL ONE (12:05)
[2017-01-07] MEDS ORDERED: EpHEDrine SULFATE 50MG/5ML SYR ONE (12:05)
[2017-01-07] MEDS ORDERED: GLYCOPYRROLATE INJ 0.2 MG/ML VIAL ONE (12:05)
[2017-01-07] MEDS ORDERED: NEOSTIGMINE METHYLSULFATE 5 MG/5 ML SYR ONE (12:05)
--- NOTE | 2017-01-07 12:07 | [facility] Operative Report ---
Operative Report Operative Date Jan 07, 2017. Pre-Operative Diagnosis Lumbar Spinal Stenosis Post-Operative Diagnosis same as pre-operative Procedure(s) Performed #1 lumbar decompression medial facetectomies foraminotomies L2 3 L3 4 L4 5. 2 posterior spinal fusion L3 4 L4 5. #3 placement of posterior segmental instrumentation L3 4 L4 5. #4 interbody fusion L3 4. #5 placement peek cage 12 x 26 mm at L3 4. 6 placement locally harvested morcellized autograft in the posterior lateral gutters. #7 placement infuse collagen sponge commode Master graft in the posterior gutters DBM in the interbody space. Surgeon Dr. Donald Hernandez Wardrobe Technician Surgeon(s) Ashlyn Luke PA-C Findings Severe spinal stenosis with far lateral disc herniation L3 4 on the right Specimens none per surgeon Description of Procedure Patient was met with preoperatively case discussed all questions are dressed with a point patient was taken back to the operative suite and after undergoing successful intubation placed in a prone position the Ulises table top Damon frame all bony promises well-padded eyes inspected to ensure there is no external pressure placed upon. This point lumbar spines prepped draped nostril fashion. Sharp dissection with the assistance of Bovie cautery was then performed onto an exposing the lamina and transverse processes of L3 L4-L5. From a caudal to cephalad fashion complete laminectomy of L4 L3 partial laminectomy of L2 was performed addressing severe lateral recess stenosis foraminal disease far lateral disc herniation L3 4 on the right. After this was complete pedicle screws are placed in L3 L4 L5 bilaterally with assistance of fluoroscopy the purposes blessing placed. Through a transforaminal approach on the right a complete discectomy of L3 4 was performed and plate curetted to subcortical bleeding bone and a 12 x 26 mm peek cage filled with DBM tapped in position. The rods were then compressed and locked into final position bilaterally. Transverse processes of L3 L4 L5 burred to subcortical bleeding bone infuse collagen sponge mask graft locally harvested size autograft placed in the posterior lateral gutters. 15 round JOSE ANTONIO drain inserted. Incision then closed with 1 Vicryl in the fascia 2-0 Vicryl subcutaneously for Monocryl for final skin closure Steri-Strip sterile dressing placed patient awakened and taken to PACU stable condition. Please note Ashlyn Davis present about the entire procedure involved in patient positioning complex portions of the procedure and final skin closure. I attest to the content of the Intraoperative Record and any orders documented therein. Any exceptions are noted below.
[2017-01-07] MEDS ORDERED: ESMOLOL HCL 10 MG/ML 10 ML VIAL ONE (12:26)
[2017-01-07] MEDS ORDERED: HYDROCORTISONE SOD SUCCINATE 100 MG/2 ML VIAL ONE (12:26)
[2017-01-07] MEDS ORDERED: DiphenhydrAMINE HCL 50 MG/ML VIAL ONE (12:26)
[2017-01-07] MEDS ORDERED: RANITIDINE HCL 25 MG/ML INJ ONE (12:26)
--- NOTE | 2017-01-07 12:42 | DIAGNOSTIC IMAGING REPORT ---
LUMBAR SPINE 2 OR 3 VIEW CLINICAL HISTORY: L3-L4 DECOMPRESSION/FUSION laminectomy TECHNIQUE: Image intensifier COMPARISON STUDY: None FINDINGS: Findings consistent with posterior laminectomy and fusion at L3-L4 and L5. Disc spacers present at L3-L4. Alignment is anatomic. IMPRESSION: Posterior laminectomy and fusion from L3 through L5 The above report was generated using voice recognition software. It may contain grammatical, syntax or spelling errors. Electronically signed by: Joni Edwards M.D. 01/07/2017 12:40 PM Dictated Date/Time: 01/07/2017 12:40 PM
--- NOTE | 2017-01-07 12:48 | Anesthesiology Progress Note ---
Anesthesia Post Op Note Date & Time Jan 07, 2017 at 12:48 Vital Signs Pain Intensity: 0 Vital Signs Past 12 Hours Date Time Temp Pulse Resp B/P (MAP) Pulse Ox O2 Delivery O2 Flow Rate FiO2 01/07/17 12:39 71 16 01/07/17 12:39 71 16 01/07/17 12:39 71 16 100 01/07/17 12:39 71 16 100 01/07/17 12:37 151/73 01/07/17 12:37 151/73 01/07/17 12:34 71 22 99 01/07/17 12:34 72 22 01/07/17 12:34 72 22 01/07/17 12:34 71 22 99 01/07/17 12:32 149/79 01/07/17 12:32 149/79 01/07/17 12:30 36.5 72 16 145/68 98 Mask 10 01/07/17 12:29 71 16 100 01/07/17 12:29 71 16 01/07/17 12:29 71 16 01/07/17 12:29 71 16 100 01/07/17 12:26 150/71 01/07/17 12:26 150/71 01/07/17 12:24 70 17 01/07/17 12:24 70 17 01/07/17 12:24 70 17 100 01/07/17 12:24 70 17 100 01/07/17 12:21 153/78 01/07/17 12:21 153/78 01/07/17 12:20 145/68 01/07/17 12:20 145/68 01/07/17 12:19 72 99 01/07/17 12:19 72 01/07/17 12:19 72 01/07/17 12:19 72 99 01/07/17 08:00 Room Air 01/07/17 07:53 98 Room Air 01/07/17 07:41 36.5 59 16 166/78 (107) 98 Room Air 01/07/17 05:00 36.6 62 16 177/81 (113) 93 Room Air Notes Mental Status: alert / awake / arousable, participated in evaluation Pt Amnestic to Procedure: Yes Nausea / Vomiting: adequately controlled Pain: adequately controlled Airway Patency, RR, SpO2: stable & adequate BP & HR: stable & adequate Hydration State: stable & adequate Anesthetic Complications: no major complications apparent
[2017-01-07] MEDS: FENTANYL CITRATE INJ 50 MCG/1 ML 2 ML VIAL IV PRN ×2 (12:50→12:55)
[2017-01-07] MEDS ORDERED: COUGH DROP (SUGAR FREE) LOZ 24 LOZ/1 BOX PO PRN (16:30)
--- NOTE | 2017-01-07 16:35 | Hospitalist Progress Note ---
Hospitalist Progress Note Date of Service Jan 07, 2017. (Florence Gill PA-C) Subjective Pt evaluation today including: conversation w/ patient, conversation w/ family , physical exam, chart review, lab review, review of studies, review of inpatient medication list Voiding: perez catheter in place Patient seen and evaluated. Just returned to floor from surgery. Reporting feeling better but hasn't moved much since the surgery which is understandable. Is pleasant and smiling but a little drowsy from anesthesia. Only complaint is of a dry mouth and irritated throat. Reinforced the importance of deep breathing. present at bedside and updated. Patient is on STAVE AND BOLT EQUALIZER pump. Has ongoing issues with constipation and bowel regimen ordered. Constitutional: No fever, No chills ENT: + sore throat, + problem reported (dry mouth), No trouble swallowing Respiratory: No shortness of breath Cardiovascular: No chest pain Abdomen: + constipation, No pain, No nausea, No vomiting, No diarrhea Musculoskeletal: No swelling, No calf pain (Florence Gill, FIONAC) Medications Current Inpatient Medications Medications (Trade) Dose Ordered Sig/Brianna Route Start Time Stop Time Status Last Admin Dose Admin Baclofen (Lioresal Tab) 10 mg DAILY PO 01/05/17 09:00 02/04/17 08:59 Citalopram Hydrobromide (celeXA TAB) 30 mg DAILY PO 01/05/17 09:00 02/04/17 08:59 01/05/17 10:36 30 MG Fluticasone Propionate (Flovent Hfa 110MCG Inhaler) 1 puffs QAM INH 01/05/17 09:00 02/04/17 08:59 01/07/17 08:35 1 PUFFS Hydralazine HCl (HydrALAZINE INJ) 10 mg Q6 PRN IV. 01/06/17 10:15 02/05/17 10:14 01/06/17 23:58 10 MG Amlodipine Besylate (Norvasc Tab) 5 mg QPM PO 01/06/17 21:00 02/05/17 20:59 01/06/17 21:18 5 MG Dexamethasone Sodium Phosphate 6 mg/Syringe 1.5 ml @ 1 mls/min Q8H IV 01/07/17 14:00 01/08/17 06:02 Promethazine HCl 12.5 mg/Sodium Chloride 50.5 ml @ 202 mls/hr Q6H PRN IV 01/07/17 12:00 02/06/17 11:59 Ondansetron HCl (Zofran Inj) 4 mg Q6H PRN IV 01/07/17 12:00 02/06/17 11:59 Metoclopramide HCl (Reglan Inj) 10 mg Q6H PRN IV 01/07/17 12:00 02/06/17 11:59 Lorazepam (Ativan Tab) 0.5 mg Q8H PRN PO 01/07/17 12:00 02/06/17 11:59 Lorazepam 0.5 mg/ Syringe 1 ml @ 1 mls/min Q8H PRN IV 01/07/17 12:00 02/06/17 11:59 Pneumococcal Polysaccharide Vaccine 1 ea PRN PRN N/A 01/07/17 12:00 02/06/17 11:59 Influenza Virus Vacc Triv Types A&B 1 ea PRN PRN N/A 01/07/17 12:00 02/06/17 11:59 Polyethylene (Miralax Powder Packet) 17 gm Q6 PO 01/09/17 06:00 02/08/17 05:59 Bisacodyl (Dulcolax Supp) 10 mg DAILY PRN [place] 01/07/17 12:00 02/06/17 11:59 Magnesium Hydroxide (Milk Of Magnesia Susp) 30 ml DAILY PRN PO 01/07/17 12:00 02/06/17 11:59 Hydromorphone HCl (Dilaudid Inj) 0.5 mg Q3H PRN IV 01/08/17 06:00 01/22/17 05:59 Oxycodone HCl (Roxicodone Immediate Rel Tab) 5-10mg prn moderate to sev... Q4H PRN PO 01/08/17 06:00 01/22/17 05:59 Cefazolin Sodium 2000 mg/Dextrose 60 ml @ 100 mls/hr Q8H IV 01/07/17 18:00 01/08/17 02:35 Lactated Ringer's 1,000 ml @ 150 mls/hr Q6H40M IV 01/07/17 13:00 02/06/17 12:59 Acetaminophen (Tylenol Tab) 1,000 mg Q8H PRN PO 01/07/17 12:00 02/06/17 11:59 Acetaminophen 100 ml @ 400 mls/hr Q8H PRN IV 01/07/17 12:00 02/06/17 11:59 Naloxone HCl (Narcan Inj) 0.1 mg Q5M PRN IV 01/07/17 12:00 02/06/17 11:59 Senna/Docusate Sodium (Senokot S Tab) 2 tab HS PO 01/07/17 21:00 02/06/17 20:59 Sodium Biphosphate/ Sodium Phosphate (Fleet Enema) 132 ml ONE PRN [place] 01/07/17 12:00 02/06/17 11:59 Hydroxyzine HCl (Vistaril Tab) 25 mg Q8H PRN PO 01/07/17 12:00 02/06/17 11:59 Al Hydroxide/Mg Hydroxide (Maalox Susp) 30 ml Q6H PRN PO 01/07/17 12:00 02/06/17 11:59 Famotidine (Pepcid Tab) 20 mg Q12 PRN PO 01/07/17 12:00 02/06/17 11:59 Diphenhydramine HCl (Benadryl Cap) 25 mg Q6H PRN PO 01/07/17 12:00 02/06/17 11:59 Miscellaneous Information (Discontinue STAVE AND BOLT EQUALIZER) 1 ea 0600 ONCE N/A 01/08/17 06:00 01/08/17 06:01 Naloxone HCl (Narcan Inj) 0.1 mg Q5M PRN IV 01/07/17 12:00 01/08/17 06:00 Hydromorphone HCl (Dilaudid Laborer General) 25 mg PRN PRN IV 01/07/17 12:00 01/08/17 06:00 01/07/17 15:29 25 MG Sodium Chloride 1,000 ml @ 15 mls/hr Q24H IV 01/07/17 11:58 01/08/17 06:00 Hydromorphone HCl (Dilaudid Inj) 1 mg Q3H PRN IV 01/08/17 06:00 01/22/17 05:59 Bisacodyl (Dulcolax Supp) 10 mg DAILY PRN [place] 01/07/17 15:30 02/06/17 15:29 Sodium Biphosphate/ Sodium Phosphate (Fleet Enema) 132 ml DAILY PRN [place] 01/07/17 15:30 02/06/17 15:29 Docusate Sodium (coLACE CAP) 100 mg BID PO 01/07/17 21:00 02/06/17 20:59 (Florence Gill, JESUS) Objective Vital Signs Date Time Temp Pulse Resp B/P (MAP) Pulse Ox O2 Delivery O2 Flow Rate FiO2 01/07/17 15:20 36.5 69 16 149/74 (99) 100 Nasal Cannula 4.0 01/07/17 14:53 100 Nasal Cannula 4.0 01/07/17 14:51 36.8 68 16 152/71 (98) 100 Nasal Cannula 4.0 01/07/17 13:57 65 17 01/07/17 13:57 65 17 100 01/07/17 13:56 136/71 01/07/17 13:52 68 14 100 01/07/17 13:52 67 14 01/07/17 13:51 146/73 01/07/17 13:47 70 11 100 01/07/17 13:47 73 11 01/07/17 13:46 145/64 01/07/17 13:42 69 10 01/07/17 13:42 71 10 135/71 100 01/07/17 13:37 65 17 01/07/17 13:37 66 17 100 01/07/17 13:36 138/72 01/07/17 13:32 67 14 100 01/07/17 13:32 67 14 01/07/17 13:31 141/71 01/07/17 13:27 71 17 100 01/07/17 13:27 70 17 01/07/17 13:26 148/73 01/07/17 13:22 63 11 100 01/07/17 13:22 63 11 01/07/17 13:21 136/69 01/07/17 13:17 71 18 100 01/07/17 13:17 70 18 01/07/17 13:16 67 10 01/07/17 13:16 66 10 140/65 100 01/07/17 13:14 36.7 70 19 140/65 100 10 01/07/17 13:11 67 15 132/68 100 01/07/17 13:11 67 15 01/07/17 13:10 71 13 100 01/07/17 13:10 72 13 01/07/17 13:06 133/66 01/07/17 13:05 67 7 100 01/07/17 13:05 67 7 01/07/17 13:01 137/68 01/07/17 13:00 66 10 100 01/07/17 13:00 66 10 01/07/17 12:56 140/66 01/07/17 12:55 66 5 01/07/17 12:55 66 5 100 01/07/17 12:51 150/76 01/07/17 12:50 69 9 100 01/07/17 12:50 69 9 01/07/17 12:46 143/73 01/07/17 12:45 70 14 100 01/07/17 12:45 70 14 01/07/17 12:41 152/72 01/07/17 12:40 73 20 100 01/07/17 12:40 73 20 01/07/17 12:39 71 16 01/07/17 12:39 71 16 01/07/17 12:39 71 16 100 01/07/17 12:39 71 16 100 01/07/17 12:37 151/73 01/07/17 12:37 151/73 01/07/17 12:34 71 22 99 01/07/17 12:34 72 22 01/07/17 12:34 72 22 01/07/17 12:34 71 22 99 01/07/17 12:32 149/79 01/07/17 12:32 149/79 01/07/17 12:30 36.5 72 16 145/68 98 Mask 10 01/07/17 12:29 71 16 100 01/07/17 12:29 71 16 01/07/17 12:29 71 16 01/07/17 12:29 71 16 100 01/07/17 12:26 150/71 01/07/17 12:26 150/71 01/07/17 12:24 70 17 01/07/17 12:24 70 17 01/07/17 12:24 70 17 100 01/07/17 12:24 70 17 100 01/07/17 12:21 153/78 01/07/17 12:21 153/78 01/07/17 12:20 145/68 01/07/17 12:20 145/68 01/07/17 12:19 72 99 01/07/17 12:19 72 01/07/17 12:19 72 01/07/17 12:19 72 99 01/07/17 08:00 Room Air 01/07/17 07:53 98 Room Air 01/07/17 07:41 36.5 59 16 166/78 (107) 98 Room Air 01/07/17 05:00 36.6 62 16 177/81 (113) 93 Room Air 01/06/17 23:56 175/87 (116) 01/06/17 23:30 36.5 54 16 180/83 (115) 94 Room Air 01/06/17 23:30 Room Air 01/06/17 21:00 36.6 54 16 168/81 (110) 95 Room Air 01/06/17 20:00 36.6 54 16 155/69 (97) 95 Room Air 01/06/17 19:00 36.6 64 16 122/66 (84) 95 Room Air 01/06/17 17:59 36.9 55 18 177/79 (111) 98 Room Air (Florence Gill, PA-C) Physical Exam General Appearance: WD/WN, no apparent distress Eyes: sclerae normal ENT: hearing grossly normal Neck: supple, no JVD, trachea midline Respiratory/Chest: lungs clear, normal breath sounds, no respiratory distress, no accessory muscle use Cardiovascular: regular rate, rhythm, no gallop, no murmur Abdomen: non tender, soft, + abnormal bowel sounds (hypoactive) Extremities: no pedal edema, no calf tenderness Neurologic/Psychiatric: alert, oriented x 3 Skin: normal color, warm/dry, + pertinent finding Notes: BACK: JOSE ANTONIO drain in place with dark blood - did not visualize incision (Florence Gill, PA-C) Laboratory Results Last 24 Hours Test 01/07/17 06:00 White Blood Count 7.39 K/uL Red Blood Count 4.54 M/uL Hemoglobin 13.4 g/dL Hematocrit 40.9 % Mean Corpuscular Volume 90.1 fL Mean Corpuscular Hemoglobin 29.5 pg Mean Corpuscular Hemoglobin Concent 32.8 g/dl RDW Standard Deviation 41.6 fL RDW Coefficient of Variation 12.6 % Platelet Count 210 K/uL Mean Platelet Volume 9.7 fL Sodium Level 137 mmol/L Potassium Level 3.9 mmol/L Chloride Level 103 mmol/L Carbon Dioxide Level 28 mmol/L Anion Gap 6.0 mmol/L Blood Urea Nitrogen 25 mg/dl Creatinine 0.68 mg/dl Est Creatinine Clear Calc Drug Dose 70.3 ml/min Estimated GFR () 103.4 Estimated GFR (Non- 89.2 BUN/Creatinine Ratio 36.5 Random Glucose 120 mg/dl Calcium Level 8.8 mg/dl (Florence Gill PA-C) Assessment and Plan 71F with radicular leg pain and 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 Hernandez 01/07: - Tylenol IV PRN and STAVE AND BOLT EQUALIZER pump - Decadron 6 mg IV Q8H - Spine following - appreciate recommendations with pain management/abx coverage Chronic Constipation: - Start scheduled Miralax, Senna, and COlace with PRN bowel regimen HTN: - Was previously on Lisinopril and Amlodipine but D/C'd as outpatient due to better control - Reinstituted Norvasc 5 mg daily with PRN Hydralazine Asthma without Exacerbation: - Flovent 1 puff daily Depression/Anxiety: - Celexa 30 mg daily DVT Prophylaxis: SCDs; avoid chemical prophylaxis at this time Code Status: FULL RESUSCITATION Disposition: PT/OT evaluations - possible D/C 2-3 days Continued [facility] stay due to: multiple IV medications needed Discharge planning: uncertain (Florence Gill PA-C) Reviewed: Pt Seen/Exam by Me (Jeannine Lilly MD) History Physician It Security Manager Supervision Note: I interviewed and examined the patient. Discussed with MACKENZIE Gill and agree with findings and plan as documented in the note. Any exceptions or clarifications are listed here: Patient here with intractable lumbar radiculopathy now s/p lumbar decompression surgery today. BPs improved with addition of amlodipine and STAVE AND BOLT EQUALIZER pain control Vitals reviewed No acute distress, thin, alert awake oriented 3 Regular rate and rhythm, no murmurs Rubs Lungs Clear to Auscultation Bilaterally, Breathing Unlabored Abdomen Positive Bowel Sounds Soft Nontender Nondistended Extremities No Edema, No Calf Tenderness, 2+ Dorsalis Pedis Pulses 71-year-old Female Here with Intractable Pain from Lumbar Radiculopathy from Severe Stenosis. -Also with Uncontrolled Hypertension now improved -continue Amlodipine 5 Mg by Mouth daily at bedtime and follow blood pressures -SCDs only for DVT prophylaxis given upcoming surgery Documented By: Jeannine Lilly (Jeannine Lilly MD)
[2017-01-07] MEDS: LACTATED RINGER'S 1000ML 1,000 ML IV SCH ×2 (18:15→21:42)
[2017-01-07] MEDS: DEXAMETHASONE INJ 6 MG in SYRINGE 0 ML IV SCH ×2 (18:21→21:44)
[2017-01-07] MEDS: CEFAZOLIN IV 2,000 MG in DEXTROSE 5% 50ML 50 ML IV SCH (18:31)
[2017-01-07] MEDS: DOCUSATE SODIUM/SENNA 50/8.6MG TAB PO SCH (21:34)
[2017-01-07] MEDS: AMLODIPINE BESYLATE 5 MG TAB PO SCH (21:35)
[2017-01-07] MEDS: DOCUSATE SODIUM 100 MG CAP PO SCH (21:43)
[2017-01-08] MEDS: LACTATED RINGER'S 1000ML 1,000 ML IV SCH (01:51)
[2017-01-08] MEDS: CEFAZOLIN IV 2,000 MG in DEXTROSE 5% 50ML 50 ML IV SCH (01:51)
[2017-01-08 03:14] VITALS: BP 156/71; PULSE 71; TEMP 36.9; O2SAT 95
[2017-01-08] MEDS ORDERED: NURSING VERBAL MED ORDER ONE (05:45)
[2017-01-08] MEDS: DEXAMETHASONE INJ 6 MG in SYRINGE 0 ML IV SCH (05:47)
[2017-01-08] MEDS ORDERED: HYDROmorphone INJ 1 MG/ML SYR IV PRN (06:00)
[2017-01-08] MEDS ORDERED: DC PCA ONE (06:00)
[2017-01-08] MEDS ORDERED: HYDROmorphone INJ 0.5 MG/0.5 ML SYR IV PRN (06:00)
[2017-01-08 06:22] LABS: HEMATOCRIT 32.6 % (37-47); MEAN CELL VOLUME 90.6 fL (80-100); MEAN CORPUSCULAR HEMOGLOBIN 30.6 pg (25-34); MEAN CORPUSCULAR HGB CONC 33.7 g/dl (32-36); MEAN PLATELET VOLUME 9.2 fL (7.4-10.4); PLATELET COUNT 165 K/uL (130-400); WHITE BLOOD COUNT 10.15 K/uL (4.8-10.8)
[2017-01-08 06:58] LABS: CALCIUM 8.3 mg/dl (8.5-10.1); CREATININE 0.75 mg/dl (0.60-1.20); POTASSIUM 3.9 mmol/L (3.5-5.1)
[2017-01-08 07:12] LABS: COMPLETE YES; LYMPH ABS # 1.36 K/uL (1.2-3.4); LYMPHOCYTE % 13.4 %; NEUTROPHILS % 81.2 %
[2017-01-08 07:14] VITALS: BP 178/78; PULSE 66; TEMP 36.7; O2SAT 97
[2017-01-08] MEDS: OXYCODONE HCL IR 5 MG TAB (IMMEDIATE RELEASE) PO PRN ×2 (07:47→19:03)
[2017-01-08] MEDS: LORAZEPAM 0.5 MG TAB PO PRN (07:47)
[2017-01-08] MEDS: DOCUSATE SODIUM 100 MG CAP PO SCH ×2 (09:02→21:28)
[2017-01-08] MEDS: BACLOFEN 10 MG TAB PO SCH (09:02)
[2017-01-08] MEDS: FLUTICASONE HFA 110MCG INHALER INH SCH (09:02)
[2017-01-08] MEDS: CITALOPRAM 20 MG TAB PO SCH (09:03)
[2017-01-08] MEDS ORDERED: NURSING VERBAL MED ORDER PRN (10:30)
[2017-01-08 11:25] VITALS: BP 148/73; PULSE 66; TEMP 36.7; O2SAT 97
--- NOTE | 2017-01-08 11:37 | Hospitalist Progress Note ---
Hospitalist Progress Note Date of Service Jan 08, 2017. (Florence Gill PA-C) Subjective Pt evaluation today including: conversation w/ patient, conversation w/ family , physical exam, chart review, lab review Voiding: perez catheter in place Patient seen and evaluated. 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 Feels that pain as escalated due to not having the medication when she thought she was and then from limited meds through the night and having hard to control pain. Did discuss the plan to avoid reinstituting OSTEOP[employer]IC MEDICINE TEACHER pump to slowly convert to as needed IV then oral regimens. Patient in agreement. Also has not had bowel movement and has had a long history of chronic constipation. Reporting she even had 2 enemas for a bowel prep in the past that did not produce a BM. She is resting comfortably in bed at this time. Reports worsening of symptoms mostly with ambulating. Continuing to have a dry irritated throat and needs to clear her throat frequently. No exudate, erythema, or edema appreciated on exam. No stridor or wheeze. Constitutional: No fever, No chills ENT: + problem reported (dry irritated throat) Respiratory: No shortness of breath Cardiovascular: No chest pain Abdomen: + constipation, No pain, No nausea, No vomiting, No diarrhea Musculoskeletal: + problem reported (back pain) Neurologic: + numbness/tingling (R lower extremity) Heme: No abnormal bleeding/bruising Skin: No rash (Florence Gill, FIONAC) Medications Current Inpatient Medications Medications (Trade) Dose Ordered Sig/Brianna Route Start Time Stop Time Status Last Admin Dose Admin Baclofen (Lioresal Tab) 10 mg DAILY PO 01/05/17 09:00 02/04/17 08:59 01/08/17 09:02 10 MG Citalopram Hydrobromide (celeXA TAB) 30 mg DAILY PO 01/05/17 09:00 02/04/17 08:59 01/08/17 09:03 30 MG Fluticasone Propionate (Flovent Hfa 110MCG Inhaler) 1 puffs QAM INH 01/05/17 09:00 02/04/17 08:59 01/08/17 09:02 1 PUFFS Hydralazine HCl (HydrALAZINE INJ) 10 mg Q6 PRN IV. 01/06/17 10:15 8/30/17 10:14 01/06/17 23:58 10 MG Amlodipine Besylate (Norvasc Tab) 5 mg QPM PO 01/06/17 21:00 02/05/17 20:59 01/07/17 21:35 5 MG Promethazine HCl 12.5 mg/Sodium Chloride 50.5 ml @ 202 mls/hr Q6H PRN IV 01/07/17 12:00 02/06/17 11:59 Ondansetron HCl (Zofran Inj) 4 mg Q6H PRN IV 01/07/17 12:00 02/06/17 11:59 Metoclopramide HCl (Reglan Inj) 10 mg Q6H PRN IV 01/07/17 12:00 02/06/17 11:59 Lorazepam (Ativan Tab) 0.5 mg Q8H PRN PO 01/07/17 12:00 02/06/17 11:59 01/08/17 07:47 0.5 MG Lorazepam 0.5 mg/ Syringe 1 ml @ 1 mls/min Q8H PRN IV 01/07/17 12:00 02/06/17 11:59 Pneumococcal Polysaccharide Vaccine 1 ea PRN PRN N/A 01/07/17 12:00 02/06/17 11:59 Influenza Virus Vacc Triv Types A&B 1 ea PRN PRN N/A 01/07/17 12:00 02/06/17 11:59 Polyethylene (Miralax Powder Packet) 17 gm Q6 PO 01/09/17 06:00 02/08/17 05:59 Bisacodyl (Dulcolax Supp) 10 mg DAILY PRN [place] 01/07/17 12:00 02/06/17 11:59 Magnesium Hydroxide (Milk Of Magnesia Susp) 30 ml DAILY PRN PO 01/07/17 12:00 02/06/17 11:59 Hydromorphone HCl (Dilaudid Inj) 0.5 mg Q3H PRN IV 01/08/17 06:00 01/22/17 05:59 Oxycodone HCl (Roxicodone Immediate Rel Tab) 5-10mg prn moderate to sev... Q4H PRN PO 01/08/17 06:00 01/22/17 05:59 01/08/17 07:47 10 MG Acetaminophen (Tylenol Tab) 1,000 mg Q8H PRN PO 01/07/17 12:00 02/06/17 11:59 Acetaminophen 100 ml @ 400 mls/hr Q8H PRN IV 01/07/17 12:00 02/06/17 11:59 Naloxone HCl (Narcan Inj) 0.1 mg Q5M PRN IV 01/07/17 12:00 02/06/17 11:59 Senna/Docusate Sodium (Senokot S Tab) 2 tab HS PO 01/07/17 21:00 02/06/17 20:59 01/07/17 21:34 2 TAB Sodium Biphosphate/ Sodium Phosphate (Fleet Enema) 132 ml ONE PRN [place] 01/07/17 12:00 02/06/17 11:59 Hydroxyzine HCl (Vistaril Tab) 25 mg Q8H PRN PO 01/07/17 12:00 02/06/17 11:59 Al Hydroxide/Mg Hydroxide (Maalox Susp) 30 ml Q6H PRN PO 01/07/17 12:00 02/06/17 11:59 Famotidine (Pepcid Tab) 20 mg Q12 PRN PO 01/07/17 12:00 02/06/17 11:59 Diphenhydramine HCl (Benadryl Cap) 25 mg Q6H PRN PO 01/07/17 12:00 02/06/17 11:59 Sodium Biphosphate/ Sodium Phosphate (Fleet Enema) 132 ml DAILY PRN [place] 01/07/17 15:30 02/06/17 15:29 Docusate Sodium (coLACE CAP) 100 mg BID PO 01/07/17 21:00 02/06/17 20:59 01/08/17 09:02 100 MG Menthol (Nice Phoebe) 1 phoebe Q1H PRN PO 01/07/17 16:30 02/06/17 16:29 Hydromorphone HCl (Dilaudid Inj) 1 mg Q2H PRN IV 01/08/17 11:00 01/22/17 10:59 Lorazepam (Ativan Tab) 0.5 mg HS PO 01/08/17 21:00 02/07/17 20:59 (Bridget, Florence M., PA-C) Objective Vital Signs Date Time Temp Pulse Resp B/P (MAP) Pulse Ox O2 Delivery O2 Flow Rate FiO2 01/08/17 07:14 36.7 66 18 178/78 (111) 97 Room Air 01/08/17 03:14 36.9 71 14 156/71 (99) 95 Room Air 01/07/17 23:25 Room Air 01/07/17 22:42 36.9 70 18 139/64 (89) 97 Room Air 01/07/17 20:19 37.2 70 16 149/75 (99) 96 Room Air 01/07/17 17:46 36.9 70 16 149/69 (95) 99 Nasal Cannula 2.0 01/07/17 16:30 Nasal Cannula 2.0 01/07/17 15:20 36.5 69 16 149/74 (99) 100 Nasal Cannula 4.0 01/07/17 14:53 100 Nasal Cannula 4.0 01/07/17 14:51 36.8 68 16 152/71 (98) 100 Nasal Cannula 4.0 01/07/17 13:57 65 17 01/07/17 13:57 65 17 100 01/07/17 13:56 136/71 01/07/17 13:52 68 14 100 01/07/17 13:52 67 14 01/07/17 13:51 146/73 01/07/17 13:47 70 11 100 01/07/17 13:47 73 11 01/07/17 13:46 145/64 01/07/17 13:42 69 10 01/07/17 13:42 71 10 135/71 100 01/07/17 13:37 65 17 01/07/17 13:37 66 17 100 01/07/17 13:36 138/72 01/07/17 13:32 67 14 100 01/07/17 13:32 67 14 01/07/17 13:31 141/71 01/07/17 13:27 71 17 100 01/07/17 13:27 70 17 01/07/17 13:26 148/73 01/07/17 13:22 63 11 100 01/07/17 13:22 63 11 01/07/17 13:21 136/69 01/07/17 13:17 71 18 100 01/07/17 13:17 70 18 01/07/17 13:16 67 10 01/07/17 13:16 66 10 140/65 100 01/07/17 13:14 36.7 70 19 140/65 100 10 01/07/17 13:11 67 15 132/68 100 01/07/17 13:11 67 15 01/07/17 13:10 71 13 100 01/07/17 13:10 72 13 01/07/17 13:06 133/66 01/07/17 13:05 67 7 100 01/07/17 13:05 67 7 01/07/17 13:01 137/68 01/07/17 13:00 66 10 100 01/07/17 13:00 66 10 01/07/17 12:56 140/66 01/07/17 12:55 66 5 01/07/17 12:55 66 5 100 01/07/17 12:51 150/76 01/07/17 12:50 69 9 100 01/07/17 12:50 69 9 01/07/17 12:46 143/73 01/07/17 12:45 70 14 100 01/07/17 12:45 70 14 01/07/17 12:41 152/72 01/07/17 12:40 73 20 100 01/07/17 12:40 73 20 01/07/17 12:39 71 16 01/07/17 12:39 71 16 01/07/17 12:39 71 16 100 01/07/17 12:39 71 16 100 01/07/17 12:37 151/73 01/07/17 12:37 151/73 01/07/17 12:34 71 22 99 01/07/17 12:34 72 22 01/07/17 12:34 72 22 01/07/17 12:34 71 22 99 01/07/17 12:32 149/79 01/07/17 12:32 149/79 01/07/17 12:30 36.5 72 16 145/68 98 Mask 10 01/07/17 12:29 71 16 100 01/07/17 12:29 71 16 01/07/17 12:29 71 16 01/07/17 12:29 71 16 100 01/07/17 12:26 150/71 01/07/17 12:26 150/71 01/07/17 12:24 70 17 01/07/17 12:24 70 17 01/07/17 12:24 70 17 100 01/07/17 12:24 70 17 100 01/07/17 12:21 153/78 01/07/17 12:21 153/78 01/07/17 12:20 145/68 01/07/17 12:20 145/68 01/07/17 12:19 72 99 01/07/17 12:19 72 01/07/17 12:19 72 01/07/17 12:19 72 99 (Florence Gill PA-C) Physical Exam General Appearance: WD/WN, no apparent distress Eyes: sclerae normal ENT: hearing grossly normal, pharynx normal Neck: supple, no JVD, trachea midline Respiratory/Chest: lungs clear, normal breath sounds, no respiratory distress, no accessory muscle use Cardiovascular: regular rate, rhythm, no gallop, no murmur Abdomen: normal bowel sounds, non tender, soft, + distended (mildly distended) Extremities: + pertinent finding (motor function intact b/l lower extremities; cap refill immediate; pulses 2+) Neurologic/Psychiatric: alert, oriented x 3 Skin: normal color, warm/dry (Florence Gill, PA-C) Laboratory Results Last 24 Hours Test 01/08/17 06:05 White Blood Count 10.15 K/uL Red Blood Count 3.60 M/uL Hemoglobin 11.0 g/dL Hematocrit 32.6 % Mean Corpuscular Volume 90.6 fL Mean Corpuscular Hemoglobin 30.6 pg Mean Corpuscular Hemoglobin Concent 33.7 g/dl Platelet Count 165 K/uL Mean Platelet Volume 9.2 fL RDW Standard Deviation 42.6 fL RDW Coefficient of Variation 12.9 % Neutrophils % (Manual) 81.2 % Lymphocytes % (Manual) 13.4 % Monocytes % (Manual) 5.4 % Neutrophils # (Manual) 8.24 K/uL Total Absolute Neutrophils 8.24 K/uL Lymphocytes # (Manual) 1.36 K/uL Total Absolute Lymphocytes 1.36 K/uL Monocytes # (Manual) 0.55 K/uL Sodium Level 138 mmol/L Potassium Level 3.9 mmol/L Chloride Level 103 mmol/L Carbon Dioxide Level 31 mmol/L Anion Gap 4.0 mmol/L Blood Urea Nitrogen 18 mg/dl Creatinine 0.75 mg/dl Est Creatinine Clear Calc Drug Dose 63.7 ml/min Estimated GFR () 94.3 Estimated GFR (Non- 81.3 BUN/Creatinine Ratio 24.0 Random Glucose 112 mg/dl Calcium Level 8.3 mg/dl (Florence Gill, FIONAC) Diagnostic Results Current Inpatient Medications Medications (Trade) Dose Ordered Sig/Brianna Route Start Time Stop Time Status Last Admin Dose Admin Baclofen (Lioresal Tab) 10 mg DAILY PO 01/05/17 09:00 02/04/17 08:59 01/08/17 09:02 10 MG Citalopram Hydrobromide (celeXA TAB) 30 mg DAILY PO 01/05/17 09:00 02/04/17 08:59 01/08/17 09:03 30 MG Fluticasone Propionate (Flovent Hfa 110MCG Inhaler) 1 puffs QAM INH 01/05/17 09:00 02/04/17 08:59 01/08/17 09:02 1 PUFFS Hydralazine HCl (HydrALAZINE INJ) 10 mg Q6 PRN IV. 01/06/17 10:15 02/05/17 10:14 01/06/17 23:58 10 MG Amlodipine Besylate (Norvasc Tab) 5 mg QPM PO 01/06/17 21:00 02/05/17 20:59 01/07/17 21:35 5 MG Promethazine HCl 12.5 mg/Sodium Chloride 50.5 ml @ 202 mls/hr Q6H PRN IV 01/07/17 12:00 02/06/17 11:59 Ondansetron HCl (Zofran Inj) 4 mg Q6H PRN IV 01/07/17 12:00 02/06/17 11:59 Metoclopramide HCl (Reglan Inj) 10 mg Q6H PRN IV 01/07/17 12:00 02/06/17 11:59 Lorazepam (Ativan Tab) 0.5 mg Q8H PRN PO 01/07/17 12:00 02/06/17 11:59 01/08/17 07:47 0.5 MG Lorazepam 0.5 mg/ Syringe 1 ml @ 1 mls/min Q8H PRN IV 01/07/17 12:00 02/06/17 11:59 Pneumococcal Polysaccharide Vaccine 1 ea PRN PRN N/A 01/07/17 12:00 02/06/17 11:59 Influenza Virus Vacc Triv Types A&B 1 ea PRN PRN N/A 01/07/17 12:00 02/06/17 11:59 Polyethylene (Miralax Powder Packet) 17 gm Q6 PO 01/09/17 06:00 02/08/17 05:59 Bisacodyl (Dulcolax Supp) 10 mg DAILY PRN [place] 01/07/17 12:00 02/06/17 11:59 Magnesium Hydroxide (Milk Of Magnesia Susp) 30 ml DAILY PRN PO 01/07/17 12:00 02/06/17 11:59 Hydromorphone HCl (Dilaudid Inj) 0.5 mg Q3H PRN IV 01/08/17 06:00 01/22/17 05:59 Oxycodone HCl (Roxicodone Immediate Rel Tab) 5-10mg prn moderate to sev... Q4H PRN PO 01/08/17 06:00 01/22/17 05:59 01/08/17 07:47 10 MG Acetaminophen (Tylenol Tab) 1,000 mg Q8H PRN PO 01/07/17 12:00 02/06/17 11:59 Acetaminophen 100 ml @ 400 mls/hr Q8H PRN IV 01/07/17 12:00 02/06/17 11:59 Naloxone HCl (Narcan Inj) 0.1 mg Q5M PRN IV 01/07/17 12:00 02/06/17 11:59 Senna/Docusate Sodium (Senokot S Tab) 2 tab HS PO 01/07/17 21:00 02/06/17 20:59 01/07/17 21:34 2 TAB Sodium Biphosphate/ Sodium Phosphate (Fleet Enema) 132 ml ONE PRN [place] 01/07/17 12:00 02/06/17 11:59 Hydroxyzine HCl (Vistaril Tab) 25 mg Q8H PRN PO 01/07/17 12:00 02/06/17 11:59 Al Hydroxide/Mg Hydroxide (Maalox Susp) 30 ml Q6H PRN PO 01/07/17 12:00 02/06/17 11:59 Famotidine (Pepcid Tab) 20 mg Q12 PRN PO 01/07/17 12:00 02/06/17 11:59 Diphenhydramine HCl (Benadryl Cap) 25 mg Q6H PRN PO 01/07/17 12:00 02/06/17 11:59 Sodium Biphosphate/ Sodium Phosphate (Fleet Enema) 132 ml DAILY PRN [place] 01/07/17 15:30 02/06/17 15:29 Docusate Sodium (coLACE CAP) 100 mg BID PO 01/07/17 21:00 02/06/17 20:59 01/08/17 09:02 100 MG Menthol (Nice Phoebe) 1 phoebe Q1H PRN PO 01/07/17 16:30 02/06/17 16:29 Hydromorphone HCl (Dilaudid Inj) 1 mg Q2H PRN IV 01/08/17 11:00 01/22/17 10:59 Lorazepam (Ativan Tab) 0.5 mg HS PO 01/08/17 21:00 02/07/17 20:59 (Florence Gill, PA-C) Assessment and Plan 71F with radicular leg pain and 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 Hernandez 01/07: - Tylenol IV PRN, Dianna PRN, and Dilaudid PRN - Spine following - appreciate recommendations Chronic Constipation: - No BM x 10 days which is not unusual for patient - will give Miralax x 1 dose as this may be contributing to discomfort - Start scheduled Miralax, Senna, and Colace with PRN bowel regimen HTN: - Was previously on Lisinopril and Amlodipine but D/C'd as outpatient due to better control - Reinstituted Norvasc 5 mg daily with PRN Hydralazine - continues to be hypertensive but improved Asthma without Exacerbation: - Flovent 1 puff daily Depression/Anxiety: - Celexa 30 mg daily DVT Prophylaxis: SCDs; avoid chemical prophylaxis at this time Code Status: FULL RESUSCITATION Disposition: PT/OT evaluations - possible D/C 2-3 days Continued [facility] stay due to: multiple IV medications needed Discharge planning: uncertain (BridgetFlorence gayle PA-C) Reviewed: Pt Seen/Exam by Me (Jeannine Lilly MD) History Physician Drywall Hanger Supervision Note: I interviewed and examined the patient. Discussed with MACKENZIE Gill and agree with findings and plan as documented in the note. Any exceptions or clarifications are listed here: Patient here with intractable lumbar radiculopathy now s/p lumbar decompression surgery. Still ongoing constipation, no BM in 10 days. Pain fairly controlled now. Vitals reviewed No acute distress, thin, alert awake oriented 3 Regular rate and rhythm, no murmurs Rubs Lungs Clear to Auscultation Bilaterally, Breathing Unlabored Abdomen Positive Bowel Sounds Soft Nontender Nondistended Extremities No Edema, No Calf Tenderness, 2+ Dorsalis Pedis Pulses 71-year-old Female Here with Intractable Pain from Lumbar Radiculopathy from Severe Stenosis now s/p lumbar fusion. With significant constipation. -Hypertension now much improved with amlodipine and pain control -give Bisacodyl suppos and Fleets enema now-d/w RN Documented By: Jeannine Lilly (Jeannine Lilly MD)
[2017-01-08] MEDS: HYDROmorphone INJ 1 MG/ML SYR IV PRN ×2 (11:44→15:30)
[2017-01-08] MEDS ORDERED: POLYETHYLENE (MIRALAX) 17 GM PACK PO SCH (12:00)
--- NOTE | 2017-01-08 12:35 | Progress Note ---
Progress Note Date of Service Jan 08, 2017. Progress Note Patient's complaining of back and leg pain. She felt that her pain was not adequately controlled last evening secondary to a malfunction of the MASTICATOR. She is Patsy she will improve this morning with medications. She is continuing plane of back and right leg symptoms. Exam she appears quite anxious she is renal strength testing. Vital signs are stable. JOSE ANTONIO drain decreasing appropriately. Assessment status post lumbar decompression fusion replant this time she clearly had significant neural compression but we successful removed all disc material and stenosis. I suspect she struggling both with some pain issues as well as anxiousness. We'll initiate Neurontin by mouth 3 times a day and continue with therapy as tolerated.
[2017-01-08] MEDS ORDERED: GABAPENTIN 300 MG CAP PO SCH (14:00)
[2017-01-08] MEDS: ACETAMINOPHEN IV 100 ML IV PRN (15:30)
[2017-01-08 15:36] VITALS: BP 138/66; PULSE 72; TEMP 36.6; O2SAT 98
[2017-01-08] MEDS: GABAPENTIN 300 MG CAP PO SCH (18:09)
[2017-01-08] MEDS ORDERED: MINERAL OIL ENEMA 133 ML BTL PR PRN (18:15)
[2017-01-08] MEDS: AMLODIPINE BESYLATE 5 MG TAB PO SCH (21:27)
[2017-01-08] MEDS: LORAZEPAM 0.5 MG TAB PO SCH (21:27)
[2017-01-08] MEDS: DOCUSATE SODIUM/SENNA 50/8.6MG TAB PO SCH (21:27)
[2017-01-08] MEDS: ACETAMINOPHEN 500 MG TAB PO PRN (21:29)
[2017-01-08 23:21] VITALS: BP 156/73; PULSE 68; TEMP 36.7; O2SAT 98
[2017-01-09] MEDS: GABAPENTIN 300 MG CAP PO SCH ×4 (00:39→23:29)
[2017-01-09] MEDS: OXYCODONE HCL IR 5 MG TAB (IMMEDIATE RELEASE) PO PRN ×4 (00:39→17:41)
[2017-01-09] MEDS: HYDROmorphone INJ 1 MG/ML SYR IV PRN ×2 (03:14→19:07)
[2017-01-09] MEDS: POLYETHYLENE (MIRALAX) 17 GM PACK PO SCH ×4 (05:30→23:28)
[2017-01-09 07:14] VITALS: BP 151/72; PULSE 76; TEMP 36.4; O2SAT 98
[2017-01-09] MEDS: LORAZEPAM 0.5 MG TAB PO PRN (07:25)
--- NOTE | 2017-01-09 08:37 | Progress Note ---
Progress Note Date of Service Jan 09, 2017. Progress Note Patient was sound asleep upon my entering the room this morning. I was able to wake her without difficulty. She describes some pain in the right leg when ambulating. She feels it has improved. On exam vital signs are stable. JOSE ANTONIO drain decreasing appropriate. She exhibits reasonable strength testing. Assessment status post lumbar decompression fusion with slow progress postoperatively. Plan at this time will continue to encourage therapy and ambulation.
[2017-01-09 09:41] LABS: HEMATOCRIT 35.6 % (37-47); MEAN CORPUSCULAR HEMOGLOBIN 30.7 pg (25-34); MEAN CORPUSCULAR HGB CONC 33.7 g/dl (32-36); MEAN PLATELET VOLUME 9.5 fL (7.4-10.4); PLATELET COUNT 134 K/uL (130-400); RED BLOOD COUNT 3.91 M/uL (4.2-5.4); WHITE BLOOD COUNT 7.77 K/uL (4.8-10.8)
[2017-01-09 10:01] LABS: BUN/CREATININE RATIO 28.9 (10-20); CALCIUM 8.3 mg/dl (8.5-10.1); CREATININE 0.8 mg/dl (0.60-1.20); POTASSIUM 3.8 mmol/L (3.5-5.1)
[2017-01-09] MEDS: DOCUSATE SODIUM 100 MG CAP PO SCH ×2 (10:48→21:32)
[2017-01-09] MEDS: BACLOFEN 10 MG TAB PO SCH (10:49)
[2017-01-09] MEDS: CITALOPRAM 20 MG TAB PO SCH (10:49)
[2017-01-09] MEDS: FLUTICASONE HFA 110MCG INHALER INH SCH (10:49)
[2017-01-09 15:31] VITALS: BP 128/68; PULSE 100; TEMP 37.7; O2SAT 98
[2017-01-09] MEDS: ACETAMINOPHEN IV 100 ML IV PRN (16:19)
--- NOTE | 2017-01-09 16:39 | Hospitalist Progress Note ---
Hospitalist Progress Note Date of Service Jan 09, 2017. (Florence Gill PA-C) Subjective Pt evaluation today including: conversation w/ patient, physical exam, chart review, lab review, review of studies, review of inpatient medication list Patient seen and evaluated. Appears to be having difficulty improving pain. Appears anxious and states shes "unsure" of how shes doing. Expresses a lot of uncertainty in what her recovery course will be like and likely this is feeding into some anxiety. Reassured her and discussed utilizing techniques that therapy is giving her to help ease movements. Even though appearing anxious and unsure of her progress she always remains pleasant. Did have a bowel movement yesterday but does have chronic constipation issues. Awaiting possible rehab at [facility]. Discussed pain medication regimen and would like to keep current plan to help transition to coverage to allow discharge. Constitutional: No fever, No chills Respiratory: No shortness of breath Cardiovascular: No chest pain Abdomen: No pain, No nausea, No vomiting Musculoskeletal: + problem reported (back pain and R radicular pain/numbness /tingling) Female : No dysuria Heme: No abnormal bleeding/bruising (Florence Gill, FIONAC) Medications Current Inpatient Medications Medications (Trade) Dose Ordered Sig/Brianna Route Start Time Stop Time Status Last Admin Dose Admin Baclofen (Lioresal Tab) 10 mg DAILY PO 01/05/17 09:00 02/04/17 08:59 01/09/17 10:49 10 MG Citalopram Hydrobromide (celeXA TAB) 30 mg DAILY PO 01/05/17 09:00 02/04/17 08:59 01/09/17 10:49 40 MG Fluticasone Propionate (Flovent Hfa 110MCG Inhaler) 1 puffs QAM INH 01/05/17 09:00 02/04/17 08:59 01/09/17 10:49 1 PUFFS Hydralazine HCl (HydrALAZINE INJ) 10 mg Q6 PRN IV. 01/06/17 10:15 02/05/17 10:14 01/06/17 23:58 10 MG Amlodipine Besylate (Norvasc Tab) 5 mg QPM PO 01/06/17 21:00 02/05/17 20:59 01/08/17 21:27 5 MG Promethazine HCl 12.5 mg/Sodium Chloride 50.5 ml @ 202 mls/hr Q6H PRN IV 01/07/17 12:00 02/06/17 11:59 Ondansetron HCl (Zofran Inj) 4 mg Q6H PRN IV 01/07/17 12:00 02/06/17 11:59 Metoclopramide HCl (Reglan Inj) 10 mg Q6H PRN IV 01/07/17 12:00 02/06/17 11:59 Lorazepam (Ativan Tab) 0.5 mg Q8H PRN PO 01/07/17 12:00 02/06/17 11:59 01/09/17 07:25 0.5 MG Lorazepam 0.5 mg/ Syringe 1 ml @ 1 mls/min Q8H PRN IV 01/07/17 12:00 02/06/17 11:59 Pneumococcal Polysaccharide Vaccine 1 ea PRN PRN N/A 01/07/17 12:00 02/06/17 11:59 Influenza Virus Vacc Triv Types A&B 1 ea PRN PRN N/A 01/07/17 12:00 02/06/17 11:59 Polyethylene (Miralax Powder Packet) 17 gm Q6 PO 01/09/17 06:00 02/08/17 05:59 01/09/17 10:49 17 GM Bisacodyl (Dulcolax Supp) 10 mg DAILY PRN [place] 01/07/17 12:00 02/06/17 11:59 01/08/17 20:48 10 MG Magnesium Hydroxide (Milk Of Magnesia Susp) 30 ml DAILY PRN PO 01/07/17 12:00 02/06/17 11:59 Hydromorphone HCl (Dilaudid Inj) 0.5 mg Q3H PRN IV 01/08/17 06:00 01/22/17 05:59 Oxycodone HCl (Roxicodone Immediate Rel Tab) 5-10mg prn moderate to sev... Q4H PRN PO 01/08/17 06:00 01/22/17 05:59 01/09/17 11:09 10 MG Acetaminophen (Tylenol Tab) 1,000 mg Q8H PRN PO 01/07/17 12:00 02/06/17 11:59 01/08/17 21:29 1,000 MG Acetaminophen 100 ml @ 400 mls/hr Q8H PRN IV 01/07/17 12:00 02/06/17 11:59 01/09/17 16:19 400 MLS/HR Naloxone HCl (Narcan Inj) 0.1 mg Q5M PRN IV 01/07/17 12:00 02/06/17 11:59 Senna/Docusate Sodium (Senokot S Tab) 2 tab HS PO 01/07/17 21:00 02/06/17 20:59 01/08/17 21:27 2 TAB Sodium Biphosphate/ Sodium Phosphate (Fleet Enema) 132 ml ONE PRN [place] 01/07/17 12:00 02/06/17 11:59 01/08/17 16:48 132 ML Hydroxyzine HCl (Vistaril Tab) 25 mg Q8H PRN PO 01/07/17 12:00 02/06/17 11:59 Al Hydroxide/Mg Hydroxide (Maalox Susp) 30 ml Q6H PRN PO 01/07/17 12:00 02/06/17 11:59 Famotidine (Pepcid Tab) 20 mg Q12 PRN PO 01/07/17 12:00 02/06/17 11:59 Diphenhydramine HCl (Benadryl Cap) 25 mg Q6H PRN PO 01/07/17 12:00 02/06/17 11:59 Sodium Biphosphate/ Sodium Phosphate (Fleet Enema) 132 ml DAILY PRN [place] 01/07/17 15:30 02/06/17 15:29 Docusate Sodium (coLACE CAP) 100 mg BID PO 01/07/17 21:00 02/06/17 20:59 01/09/17 10:48 100 MG Menthol (Nice Phoebe) 1 phoebe Q1H PRN PO 01/07/17 16:30 02/06/17 16:29 Hydromorphone HCl (Dilaudid Inj) 1 mg Q2H PRN IV 01/08/17 11:00 01/22/17 10:59 01/09/17 03:14 1 MG Lorazepam (Ativan Tab) 0.5 mg HS PO 01/08/17 21:00 02/07/17 20:59 01/08/17 21:27 0.5 MG Gabapentin (Neurontin Cap) 300 mg TID@0000,0600,1800 PO 01/08/17 18:00 02/07/17 17:59 01/09/17 05:30 300 MG (Florence Gill PA-C) Objective Vital Signs Date Time Temp Pulse Resp B/P (MAP) Pulse Ox O2 Delivery O2 Flow Rate FiO2 01/09/17 15:31 37.7 100 16 128/68 (88) 98 Room Air 01/09/17 10:17 Room Air 01/09/17 07:14 36.4 76 16 151/72 (98) 98 Room Air 01/09/17 00:40 Room Air 01/08/17 23:21 36.7 68 20 156/73 (100) 98 Room Air (Florence Gill PA-C) Physical Exam General Appearance: WD/WN, no apparent distress Eyes: sclerae normal ENT: hearing grossly normal Neck: supple, no JVD, trachea midline Respiratory/Chest: lungs clear, normal breath sounds, no respiratory distress, no accessory muscle use Cardiovascular: regular rate, rhythm, no gallop, no murmur Abdomen: normal bowel sounds, non tender, soft Extremities: no pedal edema, no calf tenderness Neurologic/Psychiatric: alert Skin: normal color, warm/dry (Florence Gill PA-C) Laboratory Results Last 24 Hours Test 01/09/17 09:12 White Blood Count 7.77 K/uL Red Blood Count 3.91 M/uL Hemoglobin 12.0 g/dL Hematocrit 35.6 % Mean Corpuscular Volume 91.0 fL Mean Corpuscular Hemoglobin 30.7 pg Mean Corpuscular Hemoglobin Concent 33.7 g/dl RDW Standard Deviation 43.8 fL RDW Coefficient of Variation 13.2 % Platelet Count 134 K/uL Mean Platelet Volume 9.5 fL Sodium Level 137 mmol/L Potassium Level 3.8 mmol/L Chloride Level 103 mmol/L Carbon Dioxide Level 27 mmol/L Anion Gap 7.0 mmol/L Blood Urea Nitrogen 23 mg/dl Creatinine 0.80 mg/dl Est Creatinine Clear Calc Drug Dose 59.7 ml/min Estimated GFR () 87.2 Estimated GFR (Non- 75.2 BUN/Creatinine Ratio 28.9 Random Glucose 87 mg/dl Calcium Level 8.3 mg/dl (Florence Gill PA-C) Assessment and Plan 71F with radicular leg pain and 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 Hernandez 01/07: - Tylenol IV PRN, Dianna PRN, and Dilaudid PRN - Spine following - appreciate recommendations Chronic Constipation: - Had BM yesterday and today - has chronic constipation - Continue scheduled and PRN bowel regimen HTN: - Was previously on Lisinopril and Amlodipine but D/C'd as outpatient due to better control - Reinstituted Norvasc 5 mg daily with PRN Hydralazine - improved to 120-150s/60 -70s Asthma without Exacerbation: - Flovent 1 puff daily Depression/Anxiety: - Celexa 30 mg daily DVT Prophylaxis: SCDs; avoid chemical prophylaxis at this time Code Status: FULL RESUSCITATION Disposition: PT/OT evaluations - awaiting [facility] auth - likely discharge in 1-2 days to rehab Continued [facility] stay due to: ambulation difficulties Discharge planning: rehab hospital (Florence Gill PA-C) Reviewed: Pt Seen/Exam by Me (Jeannine Lilly MD) History Physician Marketing Representative Supervision Note: I interviewed and examined the patient. Discussed with MACKENZIE Gill and agree with findings and plan as documented in the note. Any exceptions or clarifications are listed here: Patient here with intractable lumbar radiculopathy now s/p lumbar decompression surgery. Still having a lot of pain and spasms, anxiety. Had very small BM today but nothing substantial Vitals reviewed No acute distress, thin, alert awake oriented 3 Regular rate and rhythm, no murmurs Rubs Lungs Clear to Auscultation Bilaterally, Breathing Unlabored Abdomen Positive Bowel Sounds Soft Nontender Nondistended Extremities No Edema, No Calf Tenderness, 2+ Dorsalis Pedis Pulses 71-year-old Female Here with Intractable Pain from Lumbar Radiculopathy from Severe Stenosis now s/p lumbar fusion. With significant continuing constipation. -Hypertension now much improved with amlodipine and pain control -give mineral oil enema and then Fleets enema now-d/w RN Documented By: Jeannine Lilly (Jeannine Lilly MD)
[2017-01-09] MEDS ORDERED: MINERAL OIL ENEMA 133 ML BTL PR PRN (19:15)
[2017-01-09] MEDS: AMLODIPINE BESYLATE 5 MG TAB PO SCH (21:00)
[2017-01-09] MEDS: LORAZEPAM 0.5 MG TAB PO SCH (21:32)
[2017-01-09] MEDS: DOCUSATE SODIUM/SENNA 50/8.6MG TAB PO SCH (21:33)
[2017-01-09 23:28] VITALS: BP 138/84; PULSE 99; TEMP 37.2; O2SAT 96
[2017-01-10] MEDS: GABAPENTIN 300 MG CAP PO SCH (05:38)
[2017-01-10] MEDS: POLYETHYLENE (MIRALAX) 17 GM PACK PO SCH ×3 (05:38→17:40)
[2017-01-10 07:14] VITALS: BP 122/73; PULSE 81; TEMP 37.1; O2SAT 91
[2017-01-10] MEDS ORDERED: RXC5 PO (07:52)
--- NOTE | 2017-01-10 07:53 | Discharge Instructions ---
Discharge Instructions Date of Service Jan 10, 2017. Admission Reason for Admission: Radiculopathy Of Lumbar Region Discharge Discharge Diagnosis / Problem: lumbar stenosis Discharge Goals Goal(s): Improve function Activity Recommendations Activity Limitations: per Instructions/Follow-up section . Instructions / Follow-Up Instructions / Follow-Up ACTIVITY RECOMMENDATIONS: SELF CARE INSTRUCTIONS AFTER THORACIC/LUMBAR FUSIONS 1. You may walk to your tolerance. It is good exercise for your legs and back. Expect some back and intermittent leg aches and pains. 2. You may perform "counter-top" level activities (make a sandwich, giovanni with a project, etc.). 3. No bending or lifting of more than 10 pounds or back twisting of any nature (roll like a log when turning in bed). 4. You may ride in a car for 20-30 minutes at a time. No driving until after your first visit with your doctor. 5. Frequent changes of position and restricting sitting to 30 minutes at a time will help limit the amount of back spasms and stiffness you may experience. 6. You may discontinue the use of ambulatory aids (cane, crutches, etc.) once your strength and confidence allow. 7. You may internet marketing executive the shower and let water strike your incision when you arrive home at least once daily. Do not take a tub bath, sit in a hot tub or go into a swimming pool until after your first recheck in the office. SPECIAL CARE INSTRUCTIONS: VERY IMPORTANT TO READ AND REVIEW A. Your surgical incision has been closed with a cosmetic suture under the skin that will dissolve in about 6 weeks. In 14 days, you can use a pair of clean scissors and cut the suture that is left outside of the skin at the ends of your incision. 1. The small skin tapes can be removed 7 days after surgery if they have not fallen off by that point. 2. You may keep the wound open to air as much as possible to promote healing after post-op day number 5 unless told otherwise by your doctor. 3. If you think the wound looks like it is becoming infected (redness or worsening drainage) and/or you are experiencing fever, chill or worsening back pain and muscle spasms, contact the office so that we may evaluate you as soon as possible. B. Complications are uncommon, but please contact us if you have any signs or symptoms of: 1. wound infection (fever higher than 102.5 degrees F, redness, separation of wound, drainage, or increasing pain from the incision) 2. blood clots in legs (pain, swelling, redness and warmth in legs) 3. urinary tract infection (fever higher than 102.5 degrees F, burning upon urination or increased frequency of urination) 4. nerve problems (inability to walk on your toes or heels, numbness, loss of bowel or bladder control) 5. any other symptoms that concern you C. Please call the office at if you have any concerns or questions about your operation or recovery. D. No smoking! Smoking drastically decreases the chance of a solid fusion. E. Do not take any anti-inflammatory medications (Indocin, Advil, Motrin, Aspirin, Naprosyn, etc.) as these may inhibit the chance of a solid fusion. Tylenol is okay to take for pain. MANAGING PAIN AFTER SPINAL SURGERY 1. Narcotic medication is intended for short-term use and will be provided for surgical pain. Surgical pain usually lasts for a period of 4-6 weeks. Narcotic medication includes Percocet, Vicodin, Darvocet, Tylenol #3 or Lortab. 2. Longer-term pain is more appropriately treated with non-narcotic medication such as Tylenol ES. 3. Muscle spasm is not appropriately treated with narcotics. Muscle relaxers such as Soma, Flexeril or Skelaxin can be used along with Tylenol ES. 4. Remember that we all live with some "aches and pains". This is not unusual or uncommon after an injury or as we get older. a. Back pain is expected and may include muscle spasms for 4 to 6 weeks after surgery. The pain should gradually improve. If the pain worsens for no apparent reason, please contact the office. b. Intermittent leg pain may also be experienced and should not be concerned about unless it worsens for no apparent reason. If so, please contact the office. 5. We will provide appropriate medication within the normal guidelines of their prescribed use. We will also be very cautious and aware of potential abuse and extended duration of patients' medication needs. a. Pain medications are for your comfort and to assist with sleep and rest so that the tissue can heal. They are not provided in order to return to normal activity and should not be used through the day. To do so or worsening pain at night can result from ongoing tissue damage and development of tolerance to the prescribed medicine. 6. Please allow 2-3 days to process refills. Prescriptions will not be mailed but must be picked up at the office. FOLLOW UP VISIT: Keep your scheduled follow-up appointment. Any questions, please call the office at . Current Hospital Diet Patient's current hospital diet: Regular Diet Discharge Diet Recommended Diet: Regular Diet Procedures Procedures Performed: L3-L4 Decompression and Instrumented Fusion, Application of interbody cage at L3-L4, bone morphogenetic protein, Allograft Pending Studies Studies pending at discharge: no Medical Emergencies . Who to Call and When: Medical Emergencies: If at any time you feel your situation is an emergency, please call 911 immediately. . Non-Emergent Contact Non-Emergency issues call your: Primary Care Provider . "Provider Documentation" section prepared by Donald Hernandez. . VTE Core Measure Inpt VTE Proph given/why not?: Jose Antonio Mai, LIS's
[2017-01-10] MEDS: FLUTICASONE HFA 110MCG INHALER INH SCH (09:29)
[2017-01-10] MEDS: CITALOPRAM 20 MG TAB PO SCH (09:30)
[2017-01-10] MEDS: BACLOFEN 10 MG TAB PO SCH (09:30)
[2017-01-10] MEDS: ACETAMINOPHEN 500 MG TAB PO PRN ×2 (09:39→19:03)
[2017-01-10] MEDS: DOCUSATE SODIUM 100 MG CAP PO SCH (09:53)
[2017-01-10 10:20] VITALS: BP 105/62
--- NOTE | 2017-01-10 14:39 | Progress Note ---
Progress Note Date of Service Jan 10, 2017. Progress Note Patient's pain is somewhat improved today. She still somewhat tired perhaps related to the pain medication. She is improving with physical therapy. Vital signs are stable JOSE ANTONIO drain decreasing appropriately. Assessment status post lumbar depression fusion replant this time we're hoping to transfer to rehabilitation facility today.
[2017-01-10 15:18] VITALS: BP 110/72; PULSE 84; TEMP 36.6; O2SAT 98
--- NOTE | 2017-01-10 15:48 | Discharge Instructions ---
Discharge Instructions Date of Service Jan 10, 2017. Admission Reason for Admission: Radiculopathy Of Lumbar Region Discharge Discharge Diagnosis / Problem: Lumbar radiculopathy, HTN,Constipation Discharge Goals Goal(s): Improve disease control, Diagnostic testing, Therapeutic intervention Activity Recommendations Activity Level: Assistance Required (as per Ortho instructions) . Additional Information Patient informed of condition: Yes Advance Directives: No DNR: No Level of Care: Acute Rehab Communicable Disease: No Prognosis: Stable Parsons Catheter: No Instructions / Follow-Up Instructions / Follow-Up 71F with radicular leg pain and 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 Hernandez 01/07: - pain control with oxycodone, gabapentin-caution with meds as she did have some mild delirium - f/u with Dr. Hernandez in 2 weeks Chronic Constipation: - Had BM minimally in the last 2 days but otherwise no BM in 12 days - has chronic constipation - Continue scheduled and PRN bowel regimen po and [place] HTN: - Was previously on Lisinopril and Amlodipine but D/C'd as outpatient due to better control - Reinstituted Norvasc 5 mg daily - improved to 120-150s/60-70s Asthma without Exacerbation: - Flovent 1 puff daily Depression/Anxiety: - Celexa 30 mg daily DVT Prophylaxis: SCDs; avoid chemical prophylaxis at this time Code Status: FULL RESUSCITATION Disposition: [facility] today Current Hospital Diet Patient's current hospital diet: Regular Diet Discharge Diet Recommended Diet: Regular Diet Procedures Procedures Performed: L3-L4 Decompression and Instrumented Fusion, Application of interbody cage at L3-L4, bone morphogenetic protein, Allograft Pending Studies Studies pending at discharge: no Physician Orders On Transfer Dressing Changes: as per Ortho Vital Signs: routine Weigh: routine POLST Discussion: Not Applicable Medical Emergencies . Who to Call and When: Medical Emergencies: If at any time you feel your situation is an emergency, please call 911 immediately. . Non-Emergent Contact Non-Emergency issues call your: Primary Care Provider, Surgeon Call Non-Emergent contact if: you have a fever, your pain is not controlled, your pain is worsening, your pain is unusual for you, your pain is concerning you, you have any medication questions . . "Provider Documentation" section prepared by Jeannine Lilly. . Core Measure Problem Core Measures: None
[2017-01-10] MEDS ORDERED: MRLP17 PO (15:52)
[2017-01-10] MEDS ORDERED: NRV5 PO (15:52)
[2017-01-10] MEDS ORDERED: NRN300 PO (15:52)
[2017-01-10] MEDS ORDERED: DLCS PR (15:52)
[2017-01-10] MEDS ORDERED: CLC100 PO (15:52)
[2017-01-10] MEDS ORDERED: ATV5 PO (15:52)
[2017-01-10] MEDS ORDERED: SODIENE6 PR (15:52)
[2017-01-10] MEDS ORDERED: SENN8.6T7 PO (15:52)
--- NOTE | 2017-01-10 15:58 | Discharge Summary ---
Discharge Summary Date of Service Jan 10, 2017. Discharge Summary Admission Date: Jan 04, 2017 at 22:41 Discharge Date: Jan 10, 2017 Discharge Disposition: Rehab Principal Diagnosis: Lumbar radiculopathy Problems/Secondary Diagnoses: Lumbar radiculopathy HNP L3-4, and facet arthropathy L4-5 with severe narrowing of spinal canal Chronic Constipation HTN Asthma without Exacerbation Depression/Anxiety Immunizations: Have You Had Influenza Vaccine: Yes History of Tetanus Vaccine?: Yes History of Pneumococcal: Unknown History of Hepatitis B Vaccine: Unknown Procedures: L3-L4 Decompression and Instrumented Fusion, Application of interbody cage at L3-L4, bone morphogenetic protein, Allograft MRI OF THE LUMBAR SPINE WITHOUT CONTRAST CLINICAL HISTORY: Back pain-intractable right hip/leg pain, ?disc COMPARISON STUDY: Lumbar spine radiographs January 01, 2017. TECHNIQUE: Utilizing a 1.5 Jenny magnet and dedicated coil, multiplanar, multiecho imaging of the lumbar spine was performed without IV contrast. FINDINGS: For purposes of numbering on this exam, the L5-S1 disc space is assigned to axial image 23 of 25. Alignment of lumbar spine is anatomic. Vertebral body heights are maintained and there is no suspicious marrow replacement. There is no intracanalicular mass or fluid collection. The conus terminates at the upper L1 level. Incidental note is made of mild dilatation of the common bile duct, measuring 9 mm, status post cholecystectomy. L1-2: The central canal and neural foramen are patent. L2-3: There is disc bulge with ligamentous hypertrophy and facet arthrosis. The findings result in moderate narrowing of the central canal and lateral recesses with mild narrowing of both neural foramen. L3-4: There is disc bulge with ligamentous hypertrophy and facet arthrosis that result in severe narrowing of the central canal and lateral recesses as well as the right neural foramen. Note is made of a suspected superimposed right foraminal disc protrusion. There is mild narrowing of the left neural foramen. L4-5: There is disc bulge with facet arthrosis and marked ligamentous hypertrophy that result in severe narrowing of the central canal and lateral recesses with mild narrowing of both neural foramen. L5-S1: The central canal is patent. There is facet arthrosis. There is mild narrowing of both neural foramen. IMPRESSION: 1. Severe narrowing of the central canal, lateral recesses and right neural foramen at L3-L4 due to disc bulge, ligamentous hypertrophy and facet arthrosis with a suspected superimposed right foraminal disc protrusion. 2. Severe narrowing of the central canal and lateral recesses at L4-L5 predominantly due to facet arthrosis with marked ligamentous hypertrophy. Mild disc bulge. 3. Moderate central canal stenosis at L2-L3 due to disc bulge, ligamentous hypertrophy and facet arthrosis. 4. Mild biliary ductal dilatation. This is likely related to prior cholecystectomy although could be correlated with obstructive liver function tests. LUMBAR SPINE 2 OR 3 VIEW CLINICAL HISTORY: L3-L4 DECOMPRESSION/FUSION laminectomy TECHNIQUE: Image intensifier COMPARISON STUDY: None FINDINGS: Findings consistent with posterior laminectomy and fusion at L3-L4 and L5. Disc spacers present at L3-L4. Alignment is anatomic. IMPRESSION: Posterior laminectomy and fusion from L3 through L5 Consultations: Orthopedic Spine Medication Reconciliation New Medications: Amlodipine Besylate (Amlodipine Besylate) 5 Mg Tab 5 MG PO QPM for 30 Days, TAB Bisacodyl (Bisac-Evac) 10 Mg Supp 10 MG WI DAILY PRN for Constipation for 7 Days, SUPP Docusate Sodium (Docusate Sodium) 100 Mg Cap 100 MG PO BID for 30 Days, #60 CAP Gabapentin (Gabapentin) 300 Mg Cap 300 MG PO HS for 30 Days, CAP Lorazepam (Lorazepam) 0.5 Mg Tab 0.5 MG PO Q8H PRN for anxiety or muscle spasm, #10 TAB Oxycodone HCl (Oxycodone HCl) 5 Mg Tab 5-10 MG PO Q4H PRN for Moderate - severe pain for 30 Days, #60 TAB Polyethylene (Miralax) 17 Gm Pow 17 GM PO Q6 for 30 Days Sennosides-Docusate Sodium (Senokot S) 1 Tab Tab 2 TAB PO HS for 30 Days, TAB Sodium Phosphates (Enema Dzzjk-Ci-Rnq) 1 Alejandra Alejandra 132 ML WI DAILY PRN for Constipation for 30 Days Continued Medications: Baclofen (Lioresal) 10 Mg Tab 10 MG PO DAILY, TAB Biotin (Biotin) 1 Mg Cap 1 CAP PO QAM Cholecalciferol (Vitamin D3) 1,000 Unit Tab 1 TAB PO QAM Citalopram Hydrobromide (Citalopram Hydrobromide) 20 Mg Tab 1.5 TAB PO DAILY, TAB Fluticasone Propionate (Flovent Hfa) 120 Puffs/88785 Mcg Aero 1 PUFFS INH QAM Discontinued Medications: Lorazepam (Ativan) 0.5 Mg Tab 0.5 MG PO TID PRN for Muscle Spasms, #20 TAB Melatonin (Kp Melatonin) 3 Mg Tab 1 TAB PO HS Meloxicam (Mobic) 7.5 Mg Tab 2 TAB PO HS, TAB Oxycodone/Acetaminophen 5MG/325MG (Percocet 5MG/325MG) Tab 1 TAB PO Q4H PRN for Pain, #20 TAB Prednisone (Prednisone) 10 Mg Tab 10 MG PO DIRECTED, #31 TAB 40 mg for 4 days, 30 mg for 3 days, 20 mg for 2 days, 10 mg for 2 days. Discharge Exam Review of Systems: Constitutional: No fever Eyes: No problem reported ENT: No problem reported Respiratory: No shortness of breath Cardiovascular: No chest pain Abdomen: + constipation, No pain, No nausea, No vomiting Musculoskeletal: + joint pain (back and right buttocks pain) Genitourinary - Female: No problem reported Neurologic: No problem reported Psychiatric: + anxiety Endocrine: No problem reported Hematologic / Lymphatic: No problem reported Integumentary: No problem reported Physical Exam: General Appearance: WD/WN, no apparent distress Eyes: normal inspection, sclerae normal ENT: hearing grossly normal Neck: trachea midline Respiratory/Chest: lungs clear, normal breath sounds, no respiratory distress, no accessory muscle use Cardiovascular: regular rate, rhythm, no edema, no gallop, no JVD, no murmur , normal peripheral pulses Abdomen / GI: normal bowel sounds, non tender, soft, no organomegaly, no pulsatile mass Extremities: normal inspection, no calf tenderness, normal capillary refill , no pedal edema Neurologic/Psychiatric: alert, normal mood/affect, oriented x 3 Skin: normal color, warm/dry, no rash Hospital Course 71F with radicular leg pain and 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 Hernandez 01/07: - pain control with oxycodone, gabapentin-caution with meds as she did have some mild delirium - f/u with Dr. Hernandez in 2 weeks Chronic Constipation: - Had BM minimally in the last 2 days but otherwise no BM in 12 days - has chronic constipation - Continue scheduled and PRN bowel regimen po and WI HTN: - Was previously on Lisinopril and Amlodipine but D/C'd as outpatient due to better control - Reinstituted Norvasc 5 mg daily - improved to 120-150s/60-70s Asthma without Exacerbation: - Flovent 1 puff daily Depression/Anxiety: - Celexa 30 mg daily DVT Prophylaxis: SCDs; avoid chemical prophylaxis at this time Code Status: FULL RESUSCITATION Disposition: [facility] today Total Time Spent: Greater than 30 minutes This includes examination of the patient, discharge planning, medication reconciliation, and communication with other providers. Discharge Instructions Please refer to the electronic Patient Visit Report (Discharge Instructions) for additional information. Follow-Up Ortho Spine 2 weeks PCP upon discharge within 1 week Additional Copies To Almas Esparza M.D.
[2017-01-10 16:04] VITALS: BP 110/72; PULSE 84; TEMP 36.6; O2SAT 98
[2017-01-10] MEDS ORDERED: GABAPENTIN 300 MG CAP PO SCH (21:00)
== END 2017-01-10 20:00 | DRG 460 ==
LOC: C.EDB 16:19 → C.MSW 22:41 → ENRESERV 22:45
PROVIDERS: ADMIT Hospitalist; ATTEND Family Medicine
PROC: 0SG1071 Fusion of 2 or more Lumbar Vertebral Joints with Autologous Tissue Substitute, Posterior Approach, Posterior Column, Open Approach (ICD-10-PCS; principal; 2017-01-07 10:15)
PROC: 01NB0ZZ Release Lumbar Nerve, Open Approach (ICD-10-PCS; principal; 2017-01-07 10:15)
PROC: 0ST20ZZ Resection of Lumbar Vertebral Disc, Open Approach (ICD-10-PCS; principal; 2017-01-07 10:15)
PROC: 0SG00AJ Fusion of Lumbar Vertebral Joint with Interbody Fusion Device, Posterior Approach, Anterior Column, Open Approach (ICD-10-PCS; principal; 2017-01-07 10:15)
DX: M51.16 Intervertebral disc disorders with radiculopathy, lumbar region (principal); M48.06 Spinal stenosis, lumbar region; F41.8 Other specified anxiety disorders; M79.7 Fibromyalgia; K21.9 Gastro-esophageal reflux disease without esophagitis; K59.09 Other constipation; J45.909 Unspecified asthma, uncomplicated; I10 Essential (primary) hypertension; M54.16 Radiculopathy, lumbar region; R00.1 Bradycardia, unspecified; F41.9 Anxiety disorder, unspecified; F32.9 Major depressive disorder, single episode, unspecified; M19.90 Unspecified osteoarthritis, unspecified site; Z90.49 Acquired absence of other specified parts of digestive tract; Z79.899 Other long term (current) drug therapy; Z88.2 Allergy status to sulfonamides; Z88.3 Allergy status to other anti-infective agents

== ENCOUNTER → 2017-07-09 | Outpatient (CLI) | payer OTHER ==
[~2017-07-09] MED LIST changes: +ATV5 PO; +BACL10TA PO; +CLC100 PO; +DLCS PR; -HYDR-5688 PO; -LORA-741 PO; -MELA1TAB5 PO; -MELO7.5T5 PO; +MRLP17 PO; +NRN300 PO; +NRV5 PO; -OXYC-57 PO; -PRED10TA PO; +RXC5 PO; +SENN8.6T7 PO; +SODIENE6 PR
== END | disposition home or self-care (01) ==
LOC: C.PAPS 13:15
PROVIDERS: ATTEND Obstetrics & Gynecology
DX: Z12.4 Encounter for screening for malignant neoplasm of cervix (principal); Z78.0 Asymptomatic menopausal state

== ENCOUNTER → 2017-09-23 | Outpatient (CLI) | payer OTHER ==
[2017-09-23 17:21] LABS: BASO % 0.5 %; BASO ABS # 0.04 K/uL (0-0.2); EOS % 3.2 %; EOS ABS # 0.24 K/uL (0-0.5); HEMATOCRIT 38.3 % (37-47); HEMOGLOBIN 13.3 g/dL (12.0-16.0); IG# 0.01 K/uL (0.00-0.02); LYMPH ABS # 2.71 K/uL (1.2-3.4); MEAN CELL VOLUME 89.5 fL (80-100); MEAN CORPUSCULAR HEMOGLOBIN 31.1 pg (25-34); MEAN CORPUSCULAR HGB CONC 34.7 g/dl (32-36); MEAN PLATELET VOLUME 9.9 fL (7.4-10.4); MONO % 9.3 %; NEUT % 50.9 %; NEUT ABS # 3.83 K/uL (1.4-6.5); PLATELET COUNT 243 K/uL (130-400); RED CELL DISTRIBUTION WIDTH SD 42.3 fL (36.4-46.3); WHITE BLOOD COUNT 7.53 K/uL (4.8-10.8)
[2017-09-23 17:50] LABS: BLOOD UREA NITROGEN 18 mg/dl (7-18); CALCIUM 9.3 mg/dl (8.5-10.1); CARBON DIOXIDE 28 mmol/L (21-32); CREATININE 0.97 mg/dl (0.60-1.20); GLUCOSE 84 mg/dl (70-99); POTASSIUM 4.6 mmol/L (3.5-5.1); SODIUM 137 mmol/L (136-145)
[2017-09-23 18:02] LABS: CHOLESTEROL 212 mg/dl (0-200); LDL CHOLESTEROL CALCULATED 115 mg/dl
== END | disposition home or self-care (01) ==
LOC: C.LAB 16:24
PROVIDERS: ATTEND Physician Assistant Medical
DX: E78.5 Hyperlipidemia, unspecified (principal); I10 Essential (primary) hypertension; M48.061 Spinal stenosis, lumbar region without neurogenic claudication; J45.909 Unspecified asthma, uncomplicated

== ENCOUNTER 2018-01-10 10:08 | Emergency (ER) | payer OTHER ==
[~2018-01-10 10:08] MED LIST changes: -ATV5 PO; +ATV5X PO; -BACL10TA PO; -BIOT1CAP8 PO; +BIOTCAP2 PO; -CITA20TA4 PO; -CLC100 PO; +CLX/20 PO; -DLCS PR; -FLVHFA110 INH; +GABA-1219 PO; +LORA-741 PO; +MELA3TAB PO; +MELO7.5T5 PO; -MRLP17 PO; -NRN300 PO; -NRV5 PO; +OXYC-90 PO; +PROM25TA9 PO; -SENN8.6T7 PO; -SODIENE6 PR
[2018-01-10 10:16] VITALS: TEMP 37.1; Ht 160 cm
[2018-01-10] MEDS ORDERED: BACL10TA PO (10:32)
[2018-01-10] MEDS ORDERED: KETOROLAC TROMETHAMINE 60 MG/2 ML VIAL IM STA (10:44)
[2018-01-10] MEDS ORDERED: MoRPHine SULFATE 10 MG/ML CARP/VIAL IM STA (10:44)
[2018-01-10] MEDS ORDERED: HYDR-3983 PO (10:59)
[2018-01-10] MEDS ORDERED: PRED20TA PO (10:59)
--- NOTE | 2018-01-10 11:01 | EMERGENCY ROOM VISIT NOTE ---
History Report prepared by Behzad: Lay Yusuf Under the Supervision of: Dr. Naun Gordon D.O. First contact with patient: 10:22 Chief Complaint: BACK PAIN Stated Complaint: SEVERE LOWER BACK/LEG PAIN History of Present Illness The patient is a 72 year old female who presents to the Emergency Room with complaints of severe lower back pain over the last 2 weeks. She reports that her pain is on the left lower side of her back and states that it also radiates into her left hip, leg, and toes. She reports having both pain and numbness in those areas. The patient states that she had surgery a year ago done by Dr. Hernandez. The patient states that Dr. Hernandez did an MRI in September. The patient states that she then saw Dr. Hernandez's PA in November but was feeling well. She reports that she was in the ED 13 days ago and had an MRI done which showed more degeneration since September. She states that she was sent home with prednisone , oxycodone, and a prescription for nausea medication. The patient states that she felt like the prednisone helped her until it ran out. The patient denies any kidney problems. Source of History: patient Onset: over the last 2 weeks Position: back Symptom Intensity: severe Quality: other (pain) Associated Symptoms: + numbness (left leg) Review of Systems See HPI for pertinent positives & negatives. A total of 10 systems reviewed and were otherwise negative. Past Medical & Surgical Medical Problems: (1) Anxiety (2) Depression (3) Fibromyalgia (4) GERD (gastroesophageal reflux disease) (5) Lumbar stenosis with neurogenic claudication (6) Osteoarthritis (7) Radiculopathy of lumbar region Surgical Problems: (1) H/O laminectomy (2) S/P cholecystectomy Family History No pertinent family history Social History Smoking Status: Never Smoker Alcohol Use: none Drug Use: none Marital Status: Housing Status: lives with significant other Occupation Status: retired Current/Historical Medications Scheduled Biotin (Biotin 5000), 5 MG PO DAILY Cholecalciferol (Vitamin D3), 1 TAB PO DAILY Citalopram (Citalopram Hydrobromide), 30 MG PO DAILY Gabapentin (Gabapentin), 600 MG PO TID Lorazepam (Ativan), 0.25 MG PO QPM Meloxicam (Mobic), 7.5 MG PO BID Prednisone (Prednisone), 2 TAB PO DAILY Scheduled PRN Baclofen (Lioresal), 10 MG PO TID PRN for Muscle Spasms Hydrocodone/Acetaminophen 7.5MG/325MG ([place] 7.5MG/325MG), 1 TAB PO Q6 PRN for Pain Lorazepam (Lorazepam), 0.5 MG PO DAILY PRN for Anxiety Melatonin (Melatonin), 3 MG PO HS PRN for Sleep Oxycodone Ir (Roxicodone Ir), 1-2 TAB PO Q4H PRN for Pain Promethazine Hcl (Phenergan), 25-50 MG PO Q6H PRN for Nausea Allergies Coded Allergies: Sulfamethoxazole (Verified Allergy, Unknown, RASH, 01/10/18) Aspirin (Unverified Adverse Reaction, Intermediate, ., 01/10/18) Erythromycin (Unverified Adverse Reaction, Unknown, NAUSEA, 01/10/18) Physical Exam Vital Signs Date Time Temp Pulse Resp B/P (MAP) Pulse Ox O2 Delivery O2 Flow Rate FiO2 01/10/18 11:09 74 18 170/93 96 Room Air 01/10/18 10:16 37.1 85 18 138/81 97 Room Air Physical Exam CONSTITUTIONAL/VITAL SIGNS: Reviewed / noted above. GENERAL: Non-toxic in appearance. INTEGUMENTARY: Warm, dry, and [place]. HEAD: Normocephalic. EYES: without scleral icterus or trauma. ENT/OROPHARYNX: clear and moist. LYMPHADENOPATHY/NECK: Is supple without lymphadenopathy or meningismus. RESPIRATORY: Lungs clear and equal. CARDIOVASCULAR: Regular rate and rhythm. GI/ABDOMEN: Soft and nontender. No organomegaly or pulsatile mass. No rebound or guarding. Normal bowel sounds. EXTREMITIES: Warm and well perfused. BACK: No CVA tenderness. NEUROLOGICAL: Intact without focal deficits. PSYCHIATRIC: normal affect. MUSCULOSKELETAL: Normally developed with good muscle tone. Medical Decision & Procedures Medications Administered Medications (Trade) Dose Ordered Sig/Brianna Route Start Time Stop Time Status Last Admin Dose Admin Ketorolac Tromethamine (Toradol Inj) 60 mg NOW STAT IM 01/10/18 10:44 01/10/18 10:46 DC 01/10/18 10:57 60 MG Morphine Sulfate (MoRPHine SULFATE INJ) 8 mg NOW STAT IM 01/10/18 10:44 01/10/18 10:46 DC 8/4/18 10:57 8 MG Prednisone (PredniSONE TAB) 50 mg ONE ONCE PO 01/10/18 11:00 01/10/18 11:01 DC 01/10/18 11:10 50 MG ED Course 1031: Previous medical records were reviewed. The patient was evaluated in room B7. A complete history and physical examination was performed. 1044: Ordered Morphine Sulfate 8 mg IM, Toradol Inj 60 mg IM. 1100: Ordered Prednisone 50 mg PO. 1130: On reevaluation, the patient is resting. I discussed the results and findings with the patient. She verbalized agreement of the treatment plan. She was discharged home. Medical Decision differential considered includes cauda equina syndrome, conus medullaris, spinal cord compression syndrome, peripheral nerve compression, fractures or subluxations, intra-abdominal pathology such as abdominal aortic aneurysm or kidney stones, muscle strain, transverse myelitis, spinal cord injury. This is a 72-year-old female who presents to the ED with a chief complaint of back pain with radiation down the left leg. The patient had an MRI about 2 weeks ago here and she does have findings concerning for a worsening L2-3 disc bulge with severe central canal stenosis. The patient saw Dr. Vences last but needs insurance approval for injections in the back. The patient has a scheduled appointment on Friday to see Dr. Hernandez. The patient states that she was discharged on prednisone and oxycodone. The patient's prednisone seem to help with some of her symptoms but she did not fill oxycodone helped very much. The patient denies any bowel or bladder issues. No weakness. She does report some numb sensation of tingling in her leg. Exam was unremarkable. The patient was treated with morphine IM, Toradol IM and prednisone p.o. She will be discharged on prednisone and [place]. Medication Reconcilliation Current Medication List: was personally reviewed by me Blood Pressure Screening Patient's blood pressure: Normal blood pressure Impression Primary Impression: Sciatica Additional Impression: Spinal stenosis Scribe Attestation The scribe's documentation has been prepared under my direction and personally reviewed by me in its entirety. I confirm that the note above accurately reflects all work, treatment, procedures, and medical decision making performed by me. Departure Information Dispostion Home / Self-Care Prescriptions Prednisone (Prednisone) 20 Mg Tab 2 TAB PO DAILY for 4 Days, #8 TAB Prov: Naun Gordon D.O. 01/10/18 Hydrocodone/Acetaminophen 7.5MG/325MG ([place] 7.5MG/325MG) Tab 1 TAB PO Q6 Y for Pain, #20 TAB Prov: Naun Gordon D.O. 01/10/18 Referrals Almas Esparza M.D. (PCP) Forms HOME CARE DOCUMENTATION FORM, IMPORTANT VISIT INFORMATION Patient Instructions [facility] Additional Instructions [place] as prescribed. No driving within 6 hours of use. Do not take additional Tylenol while taking [place]. Prednisone as prescribed. Follow-up with Dr. Hernandez as scheduled. Problem Qualifiers
[2018-01-10 11:09] VITALS: BP 170/93; PULSE 74; O2SAT 96
== END 2018-01-10 11:30 | disposition home or self-care (01) ==
LOC: C.EDB 10:09
DX: M48.00 Spinal stenosis, site unspecified (principal); M54.30 Sciatica, unspecified side; F32.9 Major depressive disorder, single episode, unspecified; M79.7 Fibromyalgia; F41.9 Anxiety disorder, unspecified; Z88.2 Allergy status to sulfonamides; Z88.1 Allergy status to other antibiotic agents